=== PATIENT | female | born 1990 | race Caucasian/White ===

== ENCOUNTER → 2017-09-02 14:30 | Outpatient (CLI) | payer OTHER, SELFPAY ==
[2017-09-02 16:38] LABS: Glucose Challenge Gest 1H 50g 93 mg/dL (70-140)
[2017-09-02 16:40] LABS: Absolute Lymphocyte Count 2.27 X10^3/ul (0.83-4.51); Absolute Neutrophil Count 5.3 X10^3/uL (2.0-7.7); Basophil# 0.01 X10^3/uL; Basophil% 0.1 % (0-1); Eosinophil# 0.17 X10^3/uL; Hematocrit 40.5 % (37-47); Hemoglobin 13.7 g/dl (12.0-15.0); Lymphocyte # 2.27 X10^3/ul (4.0); Mean Corp Hgb Conc 33.8 g/gl (32-36); Mean Corpuscular Hgb 31.1 pg (27.0-32.0); Mean Platelet Vol. 10.4 fl (6.2-12.0); Monocyte# 0.62 X10^3/uL; Monocyte% 7.4 % (0-10); Neutrophil # 5.32 X10^3/uL (2.7-7.7); Neutrophil % 63.4 % (47-70); Platelet Count 219 K/mm3 (150-450); RBC Distribution Width SD 40.8 fl (35.1-43.9); White Blood Count 8.4 K/mm3 (4.4-11.0)
[2017-09-02 16:46] LABS: POSITIVE COUNT NO; POSITIVE DIFFERENTIAL NO; POSITIVE MORPHOLOGY NO
[2017-09-02 20:11] LABS: Chlamydia Trachomatis by PCR Negative (Negative); Neisserai gonorrhoeae by PCR Negative (Negative); Probe Check PASS; Sample Adequacy Control PASS; Specimen Processing Control PASS
[2017-09-03 09:36] LABS: HIV - WCH Non-Reactive (Nonreactive); Rubella IgG 42.2 IU/mL
[2017-09-04 20:08] LABS: HCV Quant. RNA PCR HCV Not Detected IU/mL (.)
[2017-09-05 01:09] LABS: Rapid Plasmin Reagin (RPR) NONREACTIVE (NONREACTIVE)
[2017-09-05 11:08] LABS: HEPATITIS B SURFACE AG Negative (Negative)
== END ==
PROVIDERS: Visit Provider Obstetrics & Gynecology
DX: Z34.01 Encounter for supervision of normal first pregnancy, first trimester (principal); Z3A.00 Weeks of gestation of pregnancy not specified
CPT/HCPCS: 82950; 85025; 86592; 86703; 86762; 86850; 86900; 87086; 87340; 87491; 87522; 87591

== ENCOUNTER → 2017-11-14 08:52 | Outpatient (CLI) | payer OTHER, SELFPAY ==
--- NOTE | 2017-11-14 08:54 | US_ITS ---
STUDY: SECOND AND THIRD TRIMESTER OBSTETRICAL ULTRASOUND REASON FOR EXAM: Female, 27 years old. Routine survey. LMP: July 02, 2017. TECHNIQUE: Transabdominal PRIOR ULTRASOUND: None. FINDINGS: There is a single intrauterine fetus. The fetus is in a cephalic presentation. There is demonstrated cardiac activity with a heart rate of 144 bpm. There is a normal amniotic fluid volume. The largest amniotic fluid pocket measures 4.2 cm x 6.8 cm. The placenta is anterior in location and is not low lying. There are Grade 0 placental changes. The cervix measures 4.6 cm in length. The adnexal regions are not visualized. BIOMETRY: BPD: 4.29 cm: 19 weeks, 0 days HC: 16.27 cm: 19 weeks, 1 days AC: 13.84 cm: 19 weeks, 2 days FL: 2.95 cm: 19 weeks, 1 days CI: 76% FL/BPD: 69% FL/HC: FL/AC: 21% HC/AC: 1.18 age by current US: 19 weeks, 1 days. SAULO by current US: April 09, 2018. Estimated weight: 277 grams, +/- 40 grams, 38 %. Age by LMP: 19 weeks, 2 days. SAULO by LMP: April 08, 2018. ANATOMY: Gender: Male Cranium: Normal lateral ventricles. Normal choroid plexus. Normal cerebellum. Normal cisterna magna. Normal face, nose and lips. Chest: Normal 4-chamber heart. Abdomen/Pelvis: Normal diaphragm. Normal stomach. Normal abdominal wall. Normal cord insertion. Normal 3 vessel cord. Normal kidneys. Normal bladder. Spine: Normal cervical spine. Normal thoracic spine. Normal lumbar spine. Normal sacrum. Extremities: Normal bilateral upper extremities. Normal bilateral lower extremities. US/OB Anatomy Scan IMPRESSION: Single live uterine gestation with a mean gestational age of 19 weeks and 1 day. Electronically Signed: Shay Summers MD at 12:59 EDT Tel [phone], Service support ,
== END ==
PROVIDERS: Visit Provider Nurse Practitioner Women's Health
DX: Z34.90 Encounter for supervision of normal pregnancy, unspecified, unspecified trimester (principal)
CPT/HCPCS: 76805

== ENCOUNTER → 2018-01-14 07:57 | Outpatient (CLI) | payer OTHER, SELFPAY ==
[2018-01-14 09:23] LABS: Absolute Lymphocyte Count 2.07 X10^3/ul (0.83-4.51); Absolute Neutrophil Count 6.6 X10^3/uL (2.0-7.7); Basophil# 0.01 X10^3/uL; Basophil% 0.1 % (0-1); Eosinophil# 0.12 X10^3/uL; Eosinophils% 1.3 % (0-5); Hematocrit 33.6 % (37-47); Hemoglobin 11.4 g/dl (12.0-15.0); Lymphocyte # 2.07 X10^3/ul (4.0); Lymphocyte % 22.3 % (19-41); Mean Corp Hgb Conc 33.9 g/gl (32-36); Mean Corpuscular Hgb 31.8 pg (27.0-32.0); Mean Corpuscular Volume 93.6 fL (81-99); Mean Platelet Vol. 9.4 fl (6.2-12.0); Monocyte# 0.43 X10^3/uL; Monocyte% 4.6 % (0-10); Neutrophil # 6.63 X10^3/uL (2.7-7.7); Neutrophil % 71.6 % (47-70); Platelet Count 176 K/mm3 (150-450); RBC Distribution Width CV 12.1 % (11.6-14.6); RBC Distribution Width SD 41.2 fl (35.1-43.9); Red Blood Count 3.59 M/mm3 (4.2-5.4); White Blood Count 9.3 K/mm3 (4.4-11.0)
[2018-01-14 09:25] LABS: POSITIVE COUNT NO; POSITIVE DIFFERENTIAL NO; POSITIVE MORPHOLOGY NO
[2018-01-14 09:49] LABS: Glucose Challenge Gest 1H 50g 116 mg/dL (70-140)
== END ==
PROVIDERS: Visit Provider Nurse Practitioner Women's Health
DX: Z34.90 Encounter for supervision of normal pregnancy, unspecified, unspecified trimester (principal)
CPT/HCPCS: 36415; 82950; 85025

== ENCOUNTER → 2018-03-11 14:47 | Outpatient (CLI) | payer OTHER, SELFPAY ==
[2018-03-11 16:11] LABS: Group B Strep DNA By PCR Negative (Negative); Internal Control PASS; Probe Check PASS; Specimen Processing Control PASS
== END ==
PROVIDERS: Visit Provider Obstetrics & Gynecology
DX: Z34.90 Encounter for supervision of normal pregnancy, unspecified, unspecified trimester (principal)
CPT/HCPCS: 87081; 87653

== ENCOUNTER → 2018-04-08 16:45 | Outpatient (CLI) | payer OTHER, SELFPAY ==
--- NOTE | 2018-04-08 16:47 | US_ITS ---
STUDY: SECOND AND THIRD TRIMESTER OBSTETRICAL ULTRASOUND - LIMITED REASON FOR EXAM: Female, 27 years old. Evaluation of growth LMP: 07/02/2017 PRIOR ULTRASOUND: November 14, 2017 TECHNIQUE: TECHNICAL QUALITY: Adequate. FINDINGS: There is a single intrauterine fetus. The fetus is in a cephalic presentation. There is demonstrated cardiac activity with a heart rate of 1.3 bpm. There is a normal amniotic fluid volume. The largest amniotic fluid pocket measures 5.6 x 2.5 cm. The amniotic fluid index (LIBBY) is 15.4 cm. The placenta is anterior and not low-lying There are Grade 1 placental changes.. BIOMETRY: BPD: 9.5 cm: 30 weeks, 5 days HC: 34.6 cm: 40 weeks, 1 days AC: 34.9 cm: 38 weeks, 6 days FL: 7.6 cm: 38 weeks, 5 days Age by LMP: 40 weeks, 0 days. SAULO by LMP: 04/08/2018. age by prior US: 39 weeks, 6 days. SAULO by prior US: 04/09/2018. age by current US: 39 weeks, 6 days. SAULO by current US: 04/14/2018. Estimated weight: 3632 grams, +/- 530 grams, 51 percentile. Gender: US/OB Limited With Biometrics IMPRESSION: A single live fetus in cephalic presentation and longitudinal lie with composite measurements average amount tibia could relate to 39 weeks 6 days +/- 5 days with an expected date of delivery of 04/09/2018 There is an estimated weight of 363 2 g. This is the 51st percentile. The placenta is anterior and not low-lying. It is grade 1. Electronically Signed: Tristen Benson MD at 7:39 EDT Tel , Service support ,
== END ==
PROVIDERS: Referring Provider Obstetrics & Gynecology; Visit Provider Obstetrics & Gynecology
DX: O26.843 Uterine size-date discrepancy, third trimester (principal); Z3A.00 Weeks of gestation of pregnancy not specified
CPT/HCPCS: 76816

== ENCOUNTER 2018-04-14 19:05 | Inpatient (IN) | payer OTHER, SELFPAY ==
[2018-04-14 19:29] VITALS: BMI 39.9
[2018-04-14] MEDS: 0.9% Saline Lock 10 ML Syringe IV (19:35)
[2018-04-14] MEDS: miSOPROStol 25 MCG TABLET VAGINAL (20:08)
[2018-04-14 20:25] LABS: Absolute Lymphocyte Count 2.54 X10^3/ul (0.83-4.51); Absolute Neutrophil Count 6.8 X10^3/uL (2.0-7.7); Basophil# 0.01 X10^3/uL; Basophil% 0.1 % (0-1); Hematocrit 36.2 % (37-47); Hemoglobin 12.3 g/dl (12.0-15.0); Lymphocyte # 2.54 X10^3/ul (4.0); Lymphocyte % 25.1 % (19-41); Mean Corpuscular Hgb 31.7 pg (27.0-32.0); Mean Corpuscular Volume 93.3 fL (81-99); Mean Platelet Vol. 10.3 fl (6.2-12.0); Monocyte# 0.63 X10^3/uL; Monocyte% 6.2 % (0-10); Neutrophil # 6.83 X10^3/uL (2.7-7.7); Neutrophil % 67.4 % (47-70); Platelet Count 218 K/mm3 (150-450); RBC Distribution Width CV 12.5 % (11.6-14.6); RBC Distribution Width SD 42.1 fl (35.1-43.9); Red Blood Count 3.88 M/mm3 (4.2-5.4); White Blood Count 10.1 K/mm3 (4.4-11.0)
[2018-04-14 20:26] LABS: POSITIVE COUNT NO; POSITIVE DIFFERENTIAL NO; POSITIVE MORPHOLOGY NO
--- NOTE | 2018-04-14 20:45 | PCM.HP.OB ---
- Problem List (1) Post-dates Status: Acute (2) Contraception Status: Acute Qualifiers: Comment: No PA required. IUD 6 wk pp (3) Supervision of normal Status: Acute Qualifiers: Comment: PRR Boy(name phuong) SAULO 04/08/18 Fer[facility] History Date of Admission: 04/14/18 Final SAULO: 04/08/18 Gestational age: 40 Weeks and 6 Days History of this : This is a 27 year-old, , at 40 weeks 6 days gestational age presents for IOL secondary to postdates. she has had an uncomplicated and has done well. she denies any bleeding or loss of fluid, admits good fm and denies any reguar ctx. Medical History: Medical History (Last Reviewed 04/13/18 @ 08:29 by Reema Dupont) History of wisdom tooth extraction, class II edentulism Z98.890, K08.492 Surgical History: Surgical History (Last Reviewed 04/13/18 @ 08:29 by Reema Dupont) History of tonsillectomy Z98.890, Z90.89 Allergies No Known Allergies Allergy (Verified 04/13/18 08:29) Home Medications: Home Medications vitamin,calcium,npfkerzc-xrrw-jzaur acid tablet 1 tab PO QDAY 09/02/17 Smoking Status: Never smoker Alcohol: None Number of Fetus(es): 1 Heart Tracins moderate variability reactive no decels cat I tracing TOCO Analysis: no regular History Past Pregnancies: Past Pregnancies Delivery Date Name GA/Weeks Outcome Route Weight Infant Gender Labor Length Anesthesia Delivery Location Provider FOB Labs: Mom's Labs & Results 04/14/18 04/14/18 19:35 19:35 WBC 10.1 RBC 3.88 L Hgb 12.3 Hct 36.2 L MCV 93.3 MCH 31.7 MCHC 34.0 RDW 12.5 RDW Differential 42.1 Plt Count 218 MPV 10.3 Immature Gran % (Auto) 0.200 Neut % (Auto) 67.4 Lymph % (Auto) 25.1 [place] % (Auto) 6.2 Eos % (Auto) 1.0 Baso % (Auto) 0.1 Absolute Neuts (auto) 6.8 Absolute Lymphs (auto) 2.54 Total Counted Not Reportable Blood Type Pending Antibody Screen Pending Course Did the patient receive Yes care? Labs Blood Type: A RH: POSITIVE RPR/VDRL/Syphilis Nonreactive Rubella status Immune HbSAg Negative Date Done: 09/02/17 Chlamydia Negative Gonorrhea Negative HIV/AIDS Non-Reactive Group B Strep: Negative Current Obstetrical History Gestational Diabetes No Incompetent Cervix No Infertility No IUGR No Macrosomia No Hypertension/Pre-eclampsia No Placenta Previa/Abruption No PTL/PROM No Uterine anomaly No Oligohydramnios No Polyhydramnios No Multiple gestation No Past Medical History Asthma No Diabetes No Hypertension No Heart disease No Mitral valve prolapse No Neurologic/Seizure disorder/ No Migraines Kidney disease No Liver disease No Varicosities No Clotting disorders/Hx of DVT No Thyroid Dysfunction No Other medical diseases No Psychiatric disorders No Major trauma No Abnormal PAP smear No Sleep apnea No Mammogram in the last 2 years No Social History Marital Status: Alleged father Fercho Hx Smoking No Smoking Status Never smoker Expected Infant Delivery Method: Spontaneous Vaginal Describe any other labor & delivery plans:: Specific Issue/Plans. flu vaccine: given. minichart given: yes. tdap vaccine: given. rhogam: NA. LARC form signed: declines. labor support person: Fercho. pain management: epidural. cut cord/dad catch: yes. : yes. PP control planned: mirena IUD. special requests: [] Review of Systems Constitutional: Denies: Fever, Malaise Eyes: Denies: Blurred vision, Vision Change HEENT: Denies: Head Aches, Visual Changes Cardiovascular: Denies: Chest Pain, Palpitations Respiratory: Denies: Cough, Shortness of Breath, Wheezing Gastrointestinal: Denies: Abdominal Pain, Diarrhea, Nausea, Vomiting Genitourinary: Denies: Dysuria, Hematuria Musculoskeletal: Denies: Joint Pain, Muscle pain Skin: Denies: Lesions, Rash Neurological: Denies: Blurred vision, Focal weakness, Headaches Psychiatric: Denies: Anxiety, Depression Endocrine: Denies: Heat/ Cold Intolerance Hematologic/ Lymphatic: Denies: Easy Bruising, Easy Bleeding Physical Exam General: Alert, Cooperative, No apparent distress HEENT: Atraumatic, Normocephalic. Negative for: Thyromegaly, Lymphadenopathy Cardiovascular: Regular rate Lungs: Normal air movement Abdomen: Soft, Non Tender, Gravid Neurological: Deep Tendon Reflexes 2+/4 and Symmetrical, Neuro grossly intact. Negative for: Clonus NETWORK TECHNICAL ANALYST: Normal external genitalia. Negative for: Vulvar lesions Estimated gestational size: Appropriate for gestational size Presentation: Cephalic Assessment/Plan All Active Problems (Last Reviewed 04/13/18 @ 08:29 by Reema Dupont) Post-dates (Acute) Contraception (Acute) Supervision of normal (Acute) This is a 27 year-old, at 40 weeks 6days gestational age presents IOL postdates Patient presents IOL, plan cytotec then fb/pit, exp management for , AROM when able. Pain management: plans epidural. GBS negative. Management of any complications: none I have reviewed the [facility] and made any clinically relevant updates.
--- NOTE | 2018-04-14 20:49 | HP.PCM_ITS ---
- Problem List (1) Post-dates Status: Acute (2) Contraception Status: Acute Qualifiers: Comment: No PA required. IUD 6 wk pp (3) Supervision of normal Status: Acute Qualifiers: Comment: PRR Boy(name phuong) SAULO 04/08/18 Fer[facility] History Date of Admission: 04/14/18 Final SAULO: 04/08/18 Gestational age: 40 Weeks and 6 Days History of this : This is a 27 year-old, , at 40 weeks 6 days gestational age presents for IOL secondary to postdates. she has had an uncomplicated and has done well. she denies any bleeding or loss of fluid, admits good fm and denies any reguar ctx. Medical History: Medical History (Last Reviewed 04/13/18 @ 08:29 by Reema Dupont) History of wisdom tooth extraction, class II edentulism Z98.890, K08.492 Surgical History: Surgical History (Last Reviewed 04/13/18 @ 08:29 by Reema Dupont) History of tonsillectomy Z98.890, Z90.89 Allergies No Known Allergies Allergy (Verified 04/13/18 08:29) Home Medications: Home Medications vitamin,calcium,kqkabyaf-srug-cmjlc acid tablet 1 tab PO QDAY 09/02/17 Smoking Status: Never smoker Alcohol: None Number of Fetus(es): 1 Heart Tracins moderate variability reactive no decels cat I tracing TOCO Analysis: no regular History Past Pregnancies: Past Pregnancies Delivery Date Name GA/Weeks Outcome Route Weight Infant Gender Labor Length Anesthesia Delivery Location Provider FOB Labs: Mom's Labs & Results 04/14/18 04/14/18 19:35 19:35 WBC 10.1 RBC 3.88 L Hgb 12.3 Hct 36.2 L MCV 93.3 MCH 31.7 MCHC 34.0 RDW 12.5 RDW Differential 42.1 Plt Count 218 MPV 10.3 Immature Gran % (Auto) 0.200 Neut % (Auto) 67.4 Lymph % (Auto) 25.1 [place] % (Auto) 6.2 Eos % (Auto) 1.0 Baso % (Auto) 0.1 Absolute Neuts (auto) 6.8 Absolute Lymphs (auto) 2.54 Total Counted Not Reportable Blood Type Pending Antibody Screen Pending Course Did the patient receive Yes care? Labs Blood Type: A RH: POSITIVE RPR/VDRL/Syphilis Nonreactive Rubella status Immune HbSAg Negative Date Done: 09/02/17 Chlamydia Negative Gonorrhea Negative HIV/AIDS Non-Reactive Group B Strep: Negative Current Obstetrical History Gestational Diabetes No Incompetent Cervix No Infertility No IUGR No Macrosomia No Hypertension/Pre-eclampsia No Placenta Previa/Abruption No PTL/PROM No Uterine anomaly No Oligohydramnios No Polyhydramnios No Multiple gestation No Past Medical History Asthma No Diabetes No Hypertension No Heart disease No Mitral valve prolapse No Neurologic/Seizure disorder/ No Migraines Kidney disease No Liver disease No Varicosities No Clotting disorders/Hx of DVT No Thyroid Dysfunction No Other medical diseases No Psychiatric disorders No Major trauma No Abnormal PAP smear No Sleep apnea No Mammogram in the last 2 years No Social History Marital Status: Alleged father Fercho Hx Smoking No Smoking Status Never smoker Expected Infant Delivery Method: Spontaneous Vaginal Describe any other labor & delivery plans:: Specific Issue/Plans. flu vaccine: given. minichart given: yes. tdap vaccine: given. rhogam: NA. LARC form signed: declines. labor support person: Fercho. pain management: epidural. cut cord/dad catch: yes. : yes. PP control planned: mirena IUD. special requests: [] Review of Systems Constitutional: Denies: Fever, Malaise Eyes: Denies: Blurred vision, Vision Change HEENT: Denies: Head Aches, Visual Changes Cardiovascular: Denies: Chest Pain, Palpitations Respiratory: Denies: Cough, Shortness of Breath, Wheezing Gastrointestinal: Denies: Abdominal Pain, Diarrhea, Nausea, Vomiting Genitourinary: Denies: Dysuria, Hematuria Musculoskeletal: Denies: Joint Pain, Muscle pain Skin: Denies: Lesions, Rash Neurological: Denies: Blurred vision, Focal weakness, Headaches Psychiatric: Denies: Anxiety, Depression Endocrine: Denies: Heat/ Cold Intolerance Hematologic/ Lymphatic: Denies: Easy Bruising, Easy Bleeding Physical Exam General: Alert, Cooperative, No apparent distress HEENT: Atraumatic, Normocephalic. Negative for: Thyromegaly, Lymphadenopathy Cardiovascular: Regular rate Lungs: Normal air movement Abdomen: Soft, Non Tender, Gravid Neurological: Deep Tendon Reflexes 2+/4 and Symmetrical, Neuro grossly intact. Negative for: Clonus EARTH MOVING TECHNICIAN: Normal external genitalia. Negative for: Vulvar lesions Estimated gestational size: Appropriate for gestational size Presentation: Cephalic Assessment/Plan All Active Problems (Last Reviewed 04/13/18 @ 08:29 by Reema Dupont) Post-dates (Acute) Contraception (Acute) Supervision of normal (Acute) This is a 27 year-old, at 40 weeks 6days gestational age presents IOL postdates Patient presents IOL, plan cytotec then fb/pit, exp management for , AROM when able. Pain management: plans epidural. GBS negative. Management of any complications: none I [facility] and made any clinically relevant updates.
[2018-04-15] MEDS: miSOPROStol 25 MCG TABLET VAGINAL (00:27)
[2018-04-15] MEDS: 0.9% Normal Saline 100 ML IV.SOLN. INTRA-UTER (04:54)
--- NOTE | 2018-04-15 05:13 | PCM.PN.BLA ---
Progress Note fht 120-130 moderate variability reactive no decels cat I tracing toco irregular, 1-2 50 -2 fb and pit started now. exp management
[2018-04-15] MEDS: Oxytocin 30 units/NS 500 ml 30 UNITS/500 ML IV.SOLN IV (05:49)
[2018-04-15] MEDS: Lactated Ringers 1,000 ML 50 ML IV ×3 (05:49→18:20)
[2018-04-15] MEDS: fentaNYL-bupivacaine (epidural) 100 ML BAG EPIDURAL ×2 (15:47→20:31)
[2018-04-15] MEDS: Ondansetron 4 MG/2 ML Vial IV (18:56)
[2018-04-15] MEDS: Oxytocin 30 units/NS 500 ml 30 UNITS/500 ML IV.SOLN 334 UNITS IV (20:58)
[2018-04-15] MEDS: Oxytocin 30 units/NS 500 ml 30 UNITS/500 ML IV.SOLN 167 UNITS IV (21:29)
--- NOTE | 2018-04-15 21:43 | PCM.OB.VAG ---
- Problem List (1) Post-dates Status: Acute (2) Contraception Status: Acute Qualifiers: Comment: No PA required. IUD 6 wk pp (3) Supervision of normal Status: Acute Qualifiers: Comment: PRR Boy(name phuong) SAULO 04/08/18 [facility] Vaginal Delivery Maternal Presentation: Medically Indicated Induction 27-year-old at 41 weeks presents for induction of labor secondary to postdates Method of Induction: Pitocin, Coello Bulb, Cytotec Medical Reason for Induction: Post term Amniotic Membrane Rupture Type: Artificial Amniotic Fluid Description: Clear Final SAULO: 04/08/18 Gestational age: 41 Weeks and 0 Days Date of Procedure: 04/15/18 Pre-Operative Diagnosis: Induction of labor postdates Post-Operative Diagnosis: Same Surgery/ Procedure Performed: Spontaneous Vaginal Delivery Type of Anesthesia: Epidural Description of Procedure: Patient began pushing and delivered the head in the KAI presentation. The head was delivered atraumatically and a loose nuchal cord x1 was identified and the infant was delivered through it. The anterior and posterior shoulders delivered without complication followed by the rest of the and the infant was placed on the maternal abdomen. Delayed cord clamping was employed for approximately 60 seconds. Cord was clamped and cut and gentle traction was applied to the cord and the placenta delivered spontaneously immediately following it was noted to be intact with three-vessel cord. The perineum and vagina were inspected and noted to have a small second-degree perineal laceration that was repaired in the usual fashion with 3-0 Vicryl repeat. EBL was 200 cc. Patient and infant tolerated delivery well. Presentation: AKI Placental Delivery Description: Spontaneous Placenta Disposition: [facility] Cord Vessel Description: 3 Vessels Cord Entanglement: Around neck x 1, loose Estimated Blood Loss: 200 A gender: Male Episiotomy Description: None Laceration: Perineal Extension/lac, 2nd degree Medications given after delivery: IV Pitocin Complications: None
--- NOTE | 2018-04-15 21:53 | PCM.DCVAG ---
Discharge Diet: No Restrictions Discharge Activity: Return to Normal Activity, May not drive while taking narcotic pain medications., May Shower May resume sexual activity in: 4-6 weeks Call your doctor if your incision/area has: Continuous Slow Oozing, Sudden Increased Bleeding, Increased Pain/ Swelling, Increased Redness, Foul Smelling Discharge Additional Instructions: If you experience any of the following, contact your healthcare provider. Bleeding that soaks a pad every hour for 2 hours Fever 100.4 or higher Unrelieved incision or abdominal pain Swelling, redness, discharge or bleeding from your incision or episiotomy site Your incision begins to separate Problems urinating (including inability to urinate or burning while urinating). Visual changes Severe headache Flu-like symptoms Pain or redness in one of both of your breasts Pain, warmth, tenderness or swelling in your legs, especially the calf area Frequent nausea and vomiting Symptoms of depression or anxiety If you experience any of the following, call 911 or go to the nearest Emergency Room. Chest pain Problems breathing Seizure activity Partial or complete paralysis of a body part, slurred speech, weakness or drooping of the face, or a sudden inability to walk or hold your balance Allergies/Adverse Reactions: Allergies No Known Allergies Allergy (Verified 04/13/18 08:29) Medications to take at Discharge vitamin,calcium,sdqysvdh-jlzb-ijnuf acid tablet 1 tab PO QDAY 09/02/17 Naproxen [Naprosyn] 250 - 500 mg PO Q8H PRN PRN #30 tablet 04/15/18 Please Follow Up With: Ana Rosa Polanco MD - [phone] When: Call to make an appointment with your doctor in 6 weeks. If you had elevated Blood pressure or 4th degree laceration you will need to be seen in 2 weeks. Primary Care Physician: Care Physician,No Primary [Primary Care Provider] - Test Results: Test results from this visit will be discussed in further detail at your follow-up appointment, if applicable.
--- NOTE | 2018-04-15 21:54 | DCINST_ITS ---
Discharge Diet: No Restrictions Discharge Activity: Return to Normal Activity, May not drive while taking narcotic pain medications., May Shower May resume sexual activity in: 4-6 weeks Call your doctor if your incision/area has: Continuous Slow Oozing, Sudden Increased Bleeding, Increased Pain/ Swelling, Increased Redness, Foul Smelling Discharge Additional Instructions: If you experience any of the following, contact your healthcare provider. * Bleeding that soaks a pad every hour for 2 hours * Fever 100.4 or higher * Unrelieved incision or abdominal pain * Swelling, redness, discharge or bleeding from your incision or episiotomy site * Your incision begins to separate * Problems urinating (including inability to urinate or burning while urinating). * Visual changes * Severe headache * Flu-like symptoms * Pain or redness in one of both of your breasts * Pain, warmth, tenderness or swelling in your legs, especially the calf area * Frequent nausea and vomiting * Symptoms of depression or anxiety If you experience any of the following, call 911 or go to the nearest Emergency Room. * Chest pain * Problems breathing * Seizure activity * Partial or complete paralysis of a body part, slurred speech, weakness or drooping of the face, or a sudden inability to walk or hold your balance Allergies/Adverse Reactions: Allergies No Known Allergies Allergy (Verified 04/13/18 08:29) Medications to take at Discharge vitamin,calcium,dfvyallc-jgyq-txwzv acid tablet 1 tab PO QDAY 09/02/17 Naproxen [Naprosyn] 250 - 500 mg PO Q8H PRN PRN #30 tablet 04/15/18 Please Follow Up With: Ana Rosa Polanco MD - [phone] When: Call to make an appointment with your doctor in 6 weeks. If you had elevated Blood pressure or 4th degree laceration you will need to be seen in 2 weeks. Primary Care Physician: Care Physician,No Primary [Primary Care Provider] - Test Results: Test results from this visit will be discussed in further detail at your follow- up appointment, if applicable.
[2018-04-15] MEDS: 0.9% Saline Lock 10 ML Syringe IV (22:29)
[2018-04-16] MEDS: Naproxen 250 MG Tablet PO ×3 (00:03→18:54)
[2018-04-16 00:44] VITALS: BP 144/77; PULSE 113; RESP 18; TEMP 36.4
[2018-04-16 04:20] VITALS: BP 113/67; PULSE 77; RESP 18; TEMP 35.9
--- NOTE | 2018-04-16 08:39 | PCM.PN.OB ---
Patient Problems: Active and Suspected Problems (Last Reviewed 04/13/18 @ 08:29 by Reema Dupont) Post-dates (Acute) Subjective: Doing well. No CP, SOB. Pain controlled. - Physical Exam General: Alert, Oriented x3 Abdomen: Soft, Non Tender, - - FF below U Vital Signs Temp Pulse Resp BP 96.6 F L 77 18 113/67 04/16/18 04:20 04/16/18 04:20 04/16/18 04:20 04/16/18 04:20 Oxygen Delivery Method Room Air Weight: 263 lb Body Mass Index (BMI) 39.9 Intake and Output for Last 24 Hours 04/14/18 04/15/18 04/16/18 23:59 23:59 23:59 Intake Total 1805 / 1805 Output Total 1400 / 1400 300 / 300 Balance 405 / 405 -300 / -300 Medical Necessity - Tobacco Use Smoking Status: Never smoker Assessment/Plan All Active Problems (Last Reviewed 04/13/18 @ 08:29 by Reema Dupont) Post-dates (Acute) Contraception (Acute) Supervision of normal (Acute) PPD#1: Routine care. Pain controlled.
[2018-04-16 08:55] VITALS: BP 118/70; PULSE 77; RESP 18; TEMP 36.5; O2SAT 98
[2018-04-16 12:28] VITALS: BP 140/84; PULSE 80; RESP 18; TEMP 36.3; O2SAT 98
[2018-04-16 17:40] VITALS: BP 122/85; PULSE 81; RESP 16; TEMP 36.3
[2018-04-16 22:00] VITALS: BP 128/84; PULSE 80; RESP 16; TEMP 36.8; O2SAT 98
[2018-04-17 01:42] VITALS: BP 120/76; PULSE 81; RESP 16; TEMP 36.5
[2018-04-17] MEDS: Senna/Docusate Sodium 1 Tablet PO (07:49)
[2018-04-17 08:28] VITALS: BP 123/82; PULSE 75; RESP 16; TEMP 36.4
== END 2018-04-17 11:45 | disposition home or self-care (01) | DRG 807 ==
PROVIDERS: Admitting Provider Obstetrics & Gynecology; Visit Provider Obstetrics & Gynecology
DX: O48.0 Post-term pregnancy (principal); O69.81X0 Labor and delivery complicated by cord around neck, without compression, not applicable or unspecified; O70.1 Second degree perineal laceration during delivery; Z3A.41 41 weeks gestation of pregnancy; Z37.0 Single live birth
CPT/HCPCS: 59025; 59050; 85025; 86850; 86900; 99218; J7120; A4216; G0378; J2405

== ENCOUNTER 2018-04-27 20:49 | Outpatient (CLI) | payer OTHER, SELFPAY | END 2018-04-27 22:00 | disposition home or self-care (01) | LOC: WPOUT 20:56 → WP 20:57 | PROVIDERS: Visit Provider Obstetrics & Gynecology | DX: Z39.1 Encounter for care and examination of lactating mother (principal) | CPT/HCPCS: 96152 ==

== ENCOUNTER 2019-04-11 10:22 | Emergency (ER) | payer OTHER, SELFPAY ==
[2019-03-23 10:10] VITALS: BMI 37.0
[2019-04-11 10:25] VITALS: BP 137/75; PULSE 94; RESP 16; TEMP 36.3; O2SAT 100; BMI 34.9
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
[2019-04-11] MEDS: Ibuprofen 600 MG Tablet PO (10:43)
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
== END 2019-04-11 11:40 | disposition home or self-care (01) ==
LOC: ED 11:07
PROVIDERS: Emergency Provider Emergency Medicine; Family Provider Internal Medicine; PCP Internal Medicine
DX: S20.211A Contusion of right front wall of thorax, initial encounter (principal); M54.2 Cervicalgia; V47.5XXA Car driver injured in collision with fixed or stationary object in traffic accident, initial encounter; Y93.9 Activity, unspecified; Y92.9 Unspecified place or not applicable; Y99.9 Unspecified external cause status
CPT/HCPCS: 71046; 99283

== ENCOUNTER → 2019-06-11 17:00 | Outpatient (CLI) | payer OTHER, SELFPAY ==
[2019-06-11 08:51] VITALS: BMI 34.9
[2019-07-27 11:12] LABS: HPV Reflexed? NOT INDICATED
== END ==
PROVIDERS: Family Provider Internal Medicine; PCP Internal Medicine; Referring Provider Obstetrics & Gynecology; Visit Provider Obstetrics & Gynecology
DX: Z12.4 Encounter for screening for malignant neoplasm of cervix (principal)
CPT/HCPCS: 88175; G0145

== ENCOUNTER → 2019-10-04 16:14 | Outpatient (CLI) | payer OTHER, SELFPAY ==
[2019-10-04 09:21] VITALS: BMI 34.9
[2019-10-04 17:38] LABS: Amphetamine Urine VISTA NEGATIVE (<1000 ng/mL); Barbiturate Urine VISTA NEGATIVE (< 200 ng/mL); Benzodiazepine Urine VISTA NEGATIVE (< 200 ng/mL); Cocaine Urine VISTA NEGATIVE (< 300 ng/mL); Ecstacy Urine VISTA NEGATIVE (< 500 ng/mL); Methadone Urine VISTA NEGATIVE (< 300 ng/mL); PCP Urine VISTA NEGATIVE (< 25 ng/mL); THC Urine VISTA NEGATIVE (< 50 ng/mL); Vista UDS pH Range 6
[2019-10-04 20:20] LABS: Chlamydia Trachomatis by PCR Negative (Negative); Neisserai gonorrhoeae by PCR Negative (Negative); Probe Check PASS; Sample Adequacy Control PASS; Specimen Processing Control PASS
== END ==
PROVIDERS: Obstetrics & Gynecology; PCP Internal Medicine; Referring Provider Internal Medicine; Visit Provider Internal Medicine
DX: Z34.90 Encounter for supervision of normal pregnancy, unspecified, unspecified trimester (principal); Z3A.00 Weeks of gestation of pregnancy not specified
CPT/HCPCS: 80307; 87086; 87088; 87491; 87591

== ENCOUNTER → 2019-11-15 08:02 | Outpatient (CLI) | payer OTHER, SELFPAY ==
[2019-10-04 09:21] VITALS: BMI 34.9
[2019-11-15 08:43] LABS: Absolute Lymphocyte Count 1.97 X10^3/uL (0.83-4.51); Absolute Neutrophil Count 3.8 X10^3/uL (2.0-7.7); Basophil# 0.02 X10^3/uL; Basophil% 0.3 % (0-1); Eosinophil# 0.22 X10^3/uL; Eosinophils% 3.5 % (0-5); Hematocrit 36.5 % (37-47); Lymphocyte # 1.97 X10^3/ul (4.0); Lymphocyte % 31.2 % (19-41); Mean Corp Hgb Conc 35.6 g/dL (32-36); Mean Corpuscular Hgb 32.2 pg (27.0-32.0); Mean Corpuscular Volume 90.3 fL (81-99); Mean Platelet Vol. 10.1 fl (6.2-12.0); Monocyte# 0.33 X10^3/uL; Monocyte% 5.2 % (0-10); NRBC Flagged by Analyzer 0 % (0-5); Neutrophil # 3.77 X10^3/uL (2.7-7.7); Neutrophil % 59.6 % (47-70); Platelet Count 176 K/mm3 (150-450); Red Blood Count 4.04 M/mm3 (4.2-5.4); White Blood Count 6.3 K/mm3 (4.4-11.0)
[2019-11-15 08:59] LABS: Glucose Challenge Gest 1H 50g 100 mg/dL (70-140)
[2019-11-15 09:46] LABS: HIV - WCH Non-Reactive (Nonreactive); Hepatitis B Surface Antigen Non-Reactive (Nonreactive); Hepatitis C Antibody Non-Reactive (Nonreactive); Rubella IgG 37.6 IU/mL
[2019-11-18 02:20] LABS: Rapid Plasmin Reagin (RPR) NONREACTIVE (NONREACTIVE)
== END ==
PROVIDERS: PCP Internal Medicine; Referring Provider Obstetrics & Gynecology; Visit Provider Obstetrics & Gynecology
DX: O99.210 Obesity complicating pregnancy, unspecified trimester (principal); Z3A.00 Weeks of gestation of pregnancy not specified
CPT/HCPCS: 36415; 82950; 85025; 86592; 86703; 86762; 86803; 86850; 86900; 86901; 87340

== ENCOUNTER → 2020-01-03 08:01 | Outpatient (CLI) | payer OTHER, SELFPAY ==
[2019-11-17 11:40] VITALS: BMI 34.9
[2019-12-17 13:55] VITALS: BMI 37.7
--- NOTE | 2020-01-03 08:02 | US_ITS ---
STUDY: SECOND AND THIRD TRIMESTER OBSTETRICAL ULTRASOUND REASON FOR EXAM: Female, 29 years old anatomy LMP: August 21, 2019. TECHNIQUE: Transabdominal TECHNICAL QUALITY: Adequate. PRIOR ULTRASOUND: None. FINDINGS: There is a single intrauterine fetus. The fetus is in a cephalic presentation. There is demonstrated cardiac activity with a heart rate of 143 bpm. There is a normal amniotic fluid volume. The largest amniotic fluid pocket measures 4.2 cm x 3.1 cm. The amniotic fluid index (LIBBY) is within normal limits. The placenta is posterior in location and is not low lying. There are Grade 0 placental changes. The cervix measures 4.8 cm in length. The bilateral adnexal regions are normal. BIOMETRY: BPD: 4.62 cm: 19 weeks, 6 days HC: 17.26 cm: 19 weeks, 5 days AC: 14.22 cm: 19 weeks, 4 days FL: 3.14 cm: 19 weeks, 5 days CI: 79% FL/BPD: 68% FL/HC: FL/AC: 22% HC/AC: 1.21 age by current US: 19 weeks, 3 days. SAULO by current US: May 26, 2020. Estimated weight: 306 grams, +/- 45 grams, 75 %. Age by LMP: 19 weeks, 1 days. SAULO by LMP: May 28, 2020. ANATOMY: Gender: Male Cranium: Normal lateral ventricles. Normal choroid plexus. Normal cerebellum. Normal cisterna magna. Normal face, nose and lips. Chest: Normal 4-chamber heart. Abdomen/Pelvis: Normal diaphragm. Normal stomach. Normal abdominal wall. Normal cord insertion. Normal 3 vessel cord. Normal kidneys. Normal bladder. Spine: Normal cervical spine. Normal thoracic spine. Normal lumbar spine. Normal sacrum. Extremities: Normal bilateral upper extremities. Normal bilateral lower extremities. US/OB Anatomy Scan IMPRESSION: Single live intrauterine gestation with mean gestational age of 19 weeks and 3 days. Electronically Signed: Shay Summers, at 10:34 EDT , Service support ,
== END ==
PROVIDERS: PCP Internal Medicine; Referring Provider Obstetrics & Gynecology; Visit Provider Obstetrics & Gynecology
DX: Z34.90 Encounter for supervision of normal pregnancy, unspecified, unspecified trimester (principal); Z3A.19 19 weeks gestation of pregnancy
CPT/HCPCS: 76805

== ENCOUNTER → 2020-03-08 06:37 | Outpatient (CLI) | payer OTHER, SELFPAY ==
[2020-02-10 13:25] VITALS: BMI 34.9
[2020-03-08 07:14] LABS: Absolute Lymphocyte Count 2.27 X10^3/uL (0.83-4.51); Absolute Neutrophil Count 5.1 X10^3/uL (2.0-7.7); Basophil# 0.01 X10^3/uL; Basophil% 0.1 % (0-1); Eosinophil# 0.35 X10^3/uL; Eosinophils% 4.2 % (0-5); Hematocrit 34.2 % (37-47); Hemoglobin 11.7 g/dL (12.0-15.0); Lymphocyte # 2.27 X10^3/ul (4.0); Lymphocyte % 27.1 % (19-41); Mean Corp Hgb Conc 34.2 g/dL (32-36); Mean Corpuscular Hgb 33.1 pg (27.0-32.0); Mean Corpuscular Volume 96.9 fL (81-99); Monocyte# 0.57 X10^3/uL; Monocyte% 6.8 % (0-10); NRBC Flagged by Analyzer 0 % (0-5); Neutrophil # 5.13 X10^3/uL (2.7-7.7); Neutrophil % 61.2 % (47-70); Platelet Count 216 K/mm3 (150-450); RBC Distribution Width CV 11.8 % (11.6-14.6); RBC Distribution Width SD 41.2 fl (35.1-43.9); Red Blood Count 3.53 M/mm3 (4.2-5.4); White Blood Count 8.4 K/mm3 (4.4-11.0)
[2020-03-08 07:38] LABS: Glucose Challenge Gest 1H 50g 115 mg/dL (70-140)
== END ==
PROVIDERS: PCP Internal Medicine; Referring Provider Obstetrics & Gynecology; Visit Provider Obstetrics & Gynecology
DX: Z34.82 Encounter for supervision of other normal pregnancy, second trimester (principal); Z13.1 Encounter for screening for diabetes mellitus
CPT/HCPCS: 36415; 82950; 85025

== ENCOUNTER → 2020-05-04 | Outpatient (CLI) | payer OTHER, SELFPAY ==
[2020-05-04 14:04] VITALS: BMI 41.5
== END | disposition home or self-care (01) ==
LOC: LABSPEC 16:26
PROVIDERS: PCP Internal Medicine; Referring Provider Obstetrics & Gynecology; Visit Provider Obstetrics & Gynecology
DX: Z34.90 Encounter for supervision of normal pregnancy, unspecified, unspecified trimester (principal)
CPT/HCPCS: 87081

== ENCOUNTER → 2020-05-16 11:18 | Outpatient (CLI) | payer OTHER, SELFPAY ==
[2020-05-12 14:43] VITALS: BMI 41.9
--- NOTE | 2020-05-16 11:20 | US_ITS ---
STUDY: SECOND AND THIRD TRIMESTER OBSTETRICAL ULTRASOUND - LIMITED REASON FOR EXAM: Female, 29 years old GROWTH LMP: 08/22/2019 PRIOR ULTRASOUND: Comparison is made with prior study dated 01/03/2020. TECHNIQUE: Transabdominal TECHNICAL QUALITY: Adequate. FINDINGS: There is a single intrauterine fetus. The fetus is in a cephalic presentation. There is demonstrated cardiac activity with a heart rate of 144 bpm. There is a normal amniotic fluid volume. The largest amniotic fluid pocket measures 2.74 cm. The amniotic fluid index (LIBBY) is 7.27 cm. The placenta is fundal in location. There are Grade 1 placental changes. BIOMETRY: BPD: 9.15 cm: 37 weeks, 0 days HC: 32.36 cm: 36 weeks, 4 days AC: 33.75 cm: 37 weeks, 4 days FL: 7.11 cm: 36 weeks, 3 days Age by LMP: 38 weeks, 2 days. SAULO by LMP: 05/28/2020. age by prior US: 38 weeks, 4 days. SAULO by prior US: 05/26/2020. age by current US: 36 weeks, 6 days. SAULO by current US: 06/07/2020. Estimated weight: 3196 grams, +/- 479 grams, 41 percentile. US/OB Limited With Biometrics IMPRESSION: Single live uterine gestation with a mean gestational age 30 weeks and 4 days. Measurements obtained today fall within the normal expected range. Electronically Signed: Shay Summers, at 15:44 EST , Service support ,
== END ==
PROVIDERS: PCP Internal Medicine; Referring Provider Obstetrics & Gynecology; Visit Provider Obstetrics & Gynecology
DX: Z87.59 Personal history of other complications of pregnancy, childbirth and the puerperium (principal)
CPT/HCPCS: 76816

== ENCOUNTER → 2020-05-30 12:34 | Outpatient (CLI) | payer OTHER, SELFPAY ==
--- NOTE | 2020-05-30 12:36 | US_ITS ---
STUDY: SECOND AND THIRD TRIMESTER OBSTETRICAL ULTRASOUND - LIMITED REASON FOR EXAM: Female, 29 years old LIBBY CHECK-BORDERLINE LOW LMP: 08/22/2019. PRIOR ULTRASOUND: 05/16/2020. TECHNIQUE: Transabdominal TECHNICAL QUALITY: Adequate. FINDINGS: There is a single intrauterine fetus. The fetus is in a cephalic presentation. There is demonstrated cardiac activity with a heart rate of 131 bpm. There is a normal amniotic fluid volume. The largest amniotic fluid pocket measures 2.6 cm x 1.5 cm. The amniotic fluid index (LIBBY) is 7.83 cm. The placenta is fundal in location. There are Grade 2 placental changes. BIOMETRY: Age by LMP: 40 weeks, 2 days. SAULO by LMP: 05/28/2020. age by prior US: 38 weeks, 6 days. SAULO by prior US: 06/07/2020. US/OB Limited (No Biometrics) IMPRESSION: Normal amniotic fluid. Electronically Signed: Shay Summers, at 13:20 EST , Service support ,
== END ==
PROVIDERS: PCP Internal Medicine; Visit Provider Obstetrics & Gynecology
DX: O28.8 Other abnormal findings on antenatal screening of mother (principal)
CPT/HCPCS: 76815

== ENCOUNTER → 2020-05-30 18:29 | Outpatient (CLI) | payer OTHER, SELFPAY ==
[2020-05-30 13:05] VITALS: BMI 42.0
== END ==
PROVIDERS: PCP Internal Medicine; Referring Provider Obstetrics & Gynecology; Visit Provider Obstetrics & Gynecology
DX: Z34.90 Encounter for supervision of normal pregnancy, unspecified, unspecified trimester (principal); Z3A.00 Weeks of gestation of pregnancy not specified
CPT/HCPCS: 87635; C9803; U0003

== ENCOUNTER 2020-06-03 18:55 | Inpatient (IN) | payer OTHER, SELFPAY ==
[2020-05-04 14:04] VITALS: BMI 41.5
[2020-05-30 13:05] VITALS: BMI 42.0
[2020-06-03 19:24] VITALS: BP 153/79; PULSE 102; TEMP 37.1; O2SAT 98; O2SAT 99
[2020-06-03] MEDS: Lactated Ringers 1,000 ML 50 ML IV (19:30)
[2020-06-03 19:37] VITALS: BMI 43.3
[2020-06-03 19:44] LABS: Absolute Lymphocyte Count 2.28 X10^3/uL (0.83-4.51); Absolute Neutrophil Count 7.8 X10^3/uL (2.0-7.7); Basophil# 0.02 X10^3/uL; Basophil% 0.2 % (0-1); Eosinophil# 0.15 X10^3/uL; Eosinophils% 1.4 % (0-5); Hematocrit 35.1 % (37-47); Hemoglobin 12.3 g/dL (12.0-15.0); Lymphocyte # 2.28 X10^3/ul (4.0); Lymphocyte % 20.9 % (19-41); Mean Corpuscular Hgb 33.1 pg (27.0-32.0); Mean Corpuscular Volume 94.4 fL (81-99); Mean Platelet Vol. 10.2 fl (6.2-12.0); Monocyte# 0.62 X10^3/uL; Monocyte% 5.7 % (0-10); NRBC Flagged by Analyzer 0 % (0-5); Neutrophil # 7.79 X10^3/uL (2.7-7.7); Neutrophil % 71.3 % (47-70); Platelet Count 215 K/mm3 (150-450); RBC Distribution Width CV 11.9 % (11.6-14.6); RBC Distribution Width SD 40.2 fl (35.1-43.9); Red Blood Count 3.72 M/mm3 (4.2-5.4); White Blood Count 10.9 K/mm3 (4.4-11.0)
[2020-06-03 19:48] VITALS: BP 146/96; PULSE 93
[2020-06-03] MEDS: miSOPROStol 25 MCG TABLET PO (20:20)
--- NOTE | 2020-06-03 20:57 | HP.PCM_ITS ---
- Problem List (1) Encounter for induction of labor Status: Acute (2) 38 weeks gestation of Status: Acute Comment: electronic covid test ordered 05/04/2020sc (scheduled for 05/24/20 at 0950) (3) LIBBY (amniotic fluid index) borderline low Status: Acute Comment: 7, repeat WNL (4) Family history of spina bifida Status: Acute Comment: 4 MG FOLIC ACID DIALY IN , declines afp screen. Anatomy US normal (5) History of prior with small for gestational age Status: Acute Comment: growth us ordered, growth nl (6) Lab test positive for detection of COVID-19 virus Status: Acute Comment: mild symptoms, repeat testing ordered 05/30 (7) Status: Acute Qualifiers: Comment: nipt, carrier, and ntd screening declined. nl anatomy (8) Supervision of normal Status: Acute Qualifiers: Comment: PRR SAULO 05/28/20 boy PC [place] [facility] History and Physical Date of Admission: 06/03/20 Intake Vital Signs 05/30/20 Height 5 ft 8 in 05/30/20 Weight: 276 lb 2 oz 05/30/20 BP 108/80 Intake Visit Reasons: est ob 40w1d Nurse Wound Care Required: No Is patient in pain?: No Allergies No Known Allergies Allergy (Verified 05/30/20 13:06) Medications folic acid 1 mg tablet 4 mg PO DAILY 30 Days #120 tab 06/29/19 [Rx Confirmed 05/30/20] vitamin#30 30 mg iron-10 mg iron-folic acid 1 mg-omg3 capsule cap PO 11/17/19 [History Confirmed 05/30/20] Last Menstral Period: 07/02/17 Zika: Zika virus screening: Negative : No PFSH PFSH Medical History Fracture of phalanx of left index finger (Resolved) Pelvic fracture (Resolved) Right wrist fracture (Resolved) Seasonal allergies (Resolved) Toe fracture (Resolved) Surgical History History of tonsillectomy (Acute) History of wisdom tooth extraction, class II edentulism (Acute) Family History Mother Hypertension Father Hypertension Hyperlipidemia Cancer Grandmother Hypertension Grandfather Parkinson disease Social History (Updated 06/01/20 @ 07:[address] Ana Rosa Polanco MD) Smoking Status: Never smoker alcohol intake: never substance use type: does not use caffeine: Yes what type of physical activity do you participate in: walking frequency: 3-4 times per week seatbelt use: always do you feel safe at home: Yes additional social history: [employer] Patient is a nurse in Pregan[employer] History 1 Elective abortions Hx Para 1 Spontaneous abortions Hx # Term Pregnancies Ectopic pregnancies Hx # Pregnancies Multiple births # of living children Past Pregnancies Del. Date Name GA/Weeks Outcome Route Bth Weight Infant Gen Labor Lgth Anesthesia Del Locatn Provider FOB 04/14/18 Ky live - full term 6lbs 8oz M fernando epidural [facility] YEMI HPI est ob 40w1d: Details: KYLEE MUÑOZ is a 29 year old who presents for routine OB visit. OB Visit SAULO Calculator Estimated Delivery Date Method Current WG Current Estimate 05/28/20 Ultrasound #1 40w 4d Other Estimates 05/19/20 LMP (Certain) 41w 6d Expected Delivery Route/Plan Labor Preferences- labor support person: Fer[facility] pain management options preferred: epidural labor intervention preferences: open to standard interventions cut cord/dad catch: both : yes PP control planned: nothing to begin with discussed possible routes of delivery and associated risks: discussed possible delivery modalities and possible indications for each including R/B/A of , VAVD, FAVD, and CS. questions answered. special requests: none Specific Issue/Plans flu vaccine: will get at work tdap vaccine: given 03/10 rhogam: na LARC form signed: declined movement and labor precautions reviewed. Problem list reviewed and updated with the most current plan of care details and appropriate orders placed. Relevant counseling for the gestational age provided. Continue routine care and follow up unless otherwise noted in visit notes/problem list details Initial Weight: 233 lb Date EGA Weight BP Urine Prot Glucose FHR FuHt Pres Dilation Effaced St Visit Note 11/17/19 12w 3d 243 lb (+10 lb) 134/72 Negative Negative 160 Sm- no vb cramping nausea improved declined afp and genetic screening. 12/17/19 16w 5d 248 lb (+15 lb) 100/60 Negative Negative 150 SM- no vb lof no regular cramping. 02/10/20 24w 4d 260 lb (+27 lb) 124/72 150 24 GP - denies LOF/VB/DFM/Ctx. No complaints. Glucola next visit. 03/10/20 28w 5d 264 lb (+31 lb) 122/76 Negative Negative 140 28 SM- no vb lof good fm no regular ctx. 03/22/20 30w 3d 268 lb 4 oz (+35 lb 4 oz) 110/76 Negative Negative 140 30 GP - no LOF, VB, DFM, ctx. Still deciding on name. 04/07/20 32w 5d 269 lb (+36 lb) 116/80 Negative Negative 150 32 Cephalic SM- no vb lof good fm no regular ctx 04/21/20 34w 5d 272 lb 4 oz (+39 lb 4 oz) 118/70 118/70 Negative Negative 155 34 Cephalic GP - no LOF, VB, DFM, ctx. Denies complaints. Discussed labor preferences. 05/04/20 36w 4d 273 lb 6 oz (+40 lb 6 oz) 118/80 Negative Negative 140 36 Cephalic 0.5 50 -3 GP - no LOF, VB, DFM, ctx . Discussed timing of COVID testing and COVID precautions. GBS done today. 05/12/20 37w 5d 276 lb (+43 lb) 126/62 Negative Negative 150 37 Cephalic 1 50 -3 Sm- no vb lof good fm no regular ctx 05/19/20 38w 5d 276 lb 6 oz (+43 lb 6 oz) 108/82 Negative Negative 155 38 Cephalic GP - no LOF, VB, DFM, ctx. Denies complaints. Declines SVE. 05/26/20 39w 5d 140 39 Cephalic 1 SM- LIBBY 7 cm again, repeat on friday. discussed IOL 41 weeks 05/30/20 40w 2d 276 lb 2 oz (+43 lb 2 oz) 108/80 Negative Negative 140 Cephalic 1 SM- plan IOL friday with fb/cytotec. repeat LIBBY WNL. repeat covid testing today ACOG First Trimester First Trimester: Desire for , Alcohol, Tobacco Cessation, Illicit/Recreational Drug/Substance Use, Intimate Partner Violence, Barriers to care, Unstable Housing, Communication Barriers, Environmental/Work Hazards, Anticipated Course of Care, Toxoplasmosis Precations, Use of Any medic ations, Sexual activity, Exercise, Dental Care, Sauna/Hot tub use, Seat Belt use, Childbirth classes/Hospital facilities, Travel, Indications for US and Screening for Aneuploidy; discussed Diagnostics Diagnostics Details: HIV: Urine Culture: Sequential Screen: NIPT Screen: ROS Const Reports system reviewed and no additional complaints, except as docu Card Reports system reviewed and no additional complaints, except as docu Resp Reports system reviewed and no additional complaints, except as docu GI Reports system reviewed and no additional complaints, except as docu, Reports nausea Reports system reviewed and no additional complaints, except as docu Musc Reports system reviewed and no additional complaints, except as docu Exam Const General: cooperative, healthy appearing, comfortable, anxious HENMT Head: normal to inspection Nose: external nose normal Face and sinus: normal facial exam Neck Neck: normal visual inspection, full ROM, no lymphadenopathy Thyroid: thyroid normal Chest Chest palpation & inspection: normal inspection of the chest Resp Effort & Inspection: normal respiratory effort GI Inspection: normal to inspection Palpation: soft, other (gravid uterus) Other: infant vertex and appropriate size for gestational age Other: Cervical Exam: Extrem General: pedal edema Results POC Urinalysis 2 Dip (Clinic) Office Urine Glucose Negative Last Edit by Leandra No on 05/30/20 13:17 Office Urine Protein Negative Last Edit by Leandra No on 05/30/20 13:17 Assessment & Plan Problems 1. Family history of spina bifida Z82.79 4 MG FOLIC ACID DIALY IN , declines afp screen. Anatomy US normal 2. Supervision of normal Z34.90 PRR SAULO 05/28/20 boy [facility] [place] [facility] 3. Z34.90 nipt, carrier, and ntd screening declined. nl anatomy 4. Segmental and somatic dysfunction of sacral region M99.04 5. Segmental and somatic dysfunction of lumbar region M99.03 6. History of prior with small for gestational age Z87.59 growth us ordered, growth nl 7. LIBBY (amniotic fluid index) borderline low O28.8 7 repeat in 1 wk 8. 38 weeks gestation of Z3A.38 electronic covid test ordered 05/04/2020sc (scheduled for 05/24/20 at 0950) 9. Lab test positive for detection of COVID-19 virus U07.1 mild symptoms, repeat testing ordered 05/30 Patient presents IOL, plan management for with cytotec/pitocin/AROM. Pain management: plans epidural. GBS negative. Management of any complications: none I have reviewed the [facility] and made any clinically relevant updates. UPDATE- I have seen the patient and performed any clinically relevant updates to the history and physical exam. Michaelle Shipley MD
[2020-06-04] VITALS (46 sets, daily range): BP systolic 105–142; BP diastolic 52–90; PULSE 75–106; RESP 16; TEMP 36–37.2; O2SAT 89–99
[2020-06-04] MEDS: miSOPROStol 25 MCG TABLET PO (00:28)
[2020-06-04] MEDS: Oxytocin 30 units/NS 500 ml 30 UNITS/500 ML IV.SOLN IV (04:43)
[2020-06-04] MEDS: Lactated Ringers 500 ML 999 ML IV (10:06)
[2020-06-04] MEDS: fentaNYL-bupivacaine (epidural) 100 ML BAG EPIDURAL (11:09)
[2020-06-04] MEDS: Ondansetron 4 MG/2 ML Vial IV (13:08)
[2020-06-04] MEDS: Lactated Ringers 1,000 ML 200 ML IV (13:08)
[2020-06-04] MEDS: Amnioinfusion- 0.9% NS 1,000 ML IV.SOLN. 300 ML INTRA-UTER (14:20)
[2020-06-04] MEDS: Oxytocin 30 units/NS 500 ml 30 UNITS/500 ML IV.SOLN 334 UNITS IV (15:59)
--- NOTE | 2020-06-04 16:25 | PCM.OPRPT ---
Problem List (1) Encounter for induction of labor Status: Acute (2) 38 weeks gestation of Status: Acute Comment: electronic covid test ordered 05/04/2020sc (scheduled for 05/24/20 at 0950) (3) LIBBY (amniotic fluid index) borderline low Status: Acute Comment: 7, repeat WNL (4) Family history of spina bifida Status: Acute Comment: 4 MG FOLIC ACID DIALY IN , declines afp screen. Anatomy US normal (5) History of prior with small for gestational age Status: Acute Comment: growth us ordered, growth nl (6) Lab test positive for detection of COVID-19 virus Status: Acute Comment: mild symptoms, repeat testing ordered 05/30 (7) Status: Acute Qualifiers: Comment: nipt, carrier, and ntd screening declined. nl anatomy (8) Supervision of normal Status: Acute Qualifiers: Comment: PRR SAULO 05/28/20 boy ELOY Mcpherson [facility] Vaginal Delivery Maternal Presentation: Medically Indicated Induction 29-year-old G2, P1 at 41 weeks gestation admitted for induction of labor for late term. She was induced with Cytotec followed by Pitocin. She made cervical change to complete dilation within 4 hours of artificial rupture of membranes. Method of Induction: Pitocin, Cytotec Medical Reason for Induction: Post term Amniotic Membrane Rupture Type: Artificial Amniotic Fluid Description: Clear Final SAULO: 05/28/20 Gestational age: 41 Weeks and 0 Days Date of Procedure: 06/04/20 Pre-Operative Diagnosis: Term , induction of labor for late term Post-Operative Diagnosis: Same Surgery/ Procedure Performed: Spontaneous Vaginal Delivery Type of Anesthesia: Epidural Description of Procedure: Patient began pushing and delivered the head in the KAI presentation. The head was delivered atraumatically and no nuchal cord was noted. The anterior and posterior shoulders delivered without complication followed by the rest of the and the was placed on the maternal abdomen. Delayed cord clamping was employed for approximately 60 seconds. Cord was clamped and cut and gentle traction was applied to the cord and the placenta delivered spontaneously immediately following it was noted to be intact with three-vessel cord. The perineum and vagina were inspected and a midline second-degree laceration was noted and repaired in the standard fashion using 3-0 Vicryl rapide suture. EBL was 200 cc. Patient and tolerated delivery well. Presentation: Vertex, KAI Placental Delivery Description: Spontaneous Placenta Disposition: [facility] Cord Vessel Description: 3 Vessels Estimated Blood Loss: 200 cc Infant A gender: Male Episiotomy Description: None Laceration: Midline, Perineal Extension/lac, 2nd degree Medications given after delivery: IV Pitocin Complications: None Multi Select Codes - Urinary/Genital Urinary/Genital CPT Codes: 72699 Vaginal Delivery [facility]
--- NOTE | 2020-06-04 16:29 | DCINST_ITS ---
Discharge Diet: No Restrictions Discharge Activity: Return to Normal Activity, May not drive while taking narcotic pain medications., May Shower May resume sexual activity in: 4-6 weeks Additional Activity Instructions:: Nothing in the vagina for 4-6 weeks. You may return to work/school in 6 weeks. Call your doctor if your incision/area has: Continuous Slow Oozing, Sudden Increased Bleeding, Increased Pain/ Swelling, Increased Redness, Foul Smelling Discharge Additional Instructions: If you experience any of the following, contact your healthcare provider. * Bleeding that soaks a pad every hour for 2 hours * Fever 100.4 or higher * Unrelieved incision or abdominal pain * Swelling, redness, discharge or bleeding from your incision or episiotomy site * Your incision begins to separate * Problems urinating (including inability to urinate or burning while urinating). * Visual changes * Severe headache * Flu-like symptoms * Pain or redness in one of both of your breasts * Pain, warmth, tenderness or swelling in your legs, especially the calf area * Frequent nausea and vomiting * Symptoms of depression or anxiety If you experience any of the following, call 911 or go to the nearest Emergency Room. * Chest pain * Problems breathing * Seizure activity * Partial or complete paralysis of a body part, slurred speech, weakness or drooping of the face, or a sudden inability to walk or hold your balance Allergies/Adverse Reactions: Allergies No Known Allergies Allergy (Verified 06/03/20 19:31) Medications to take at Discharge folic acid 1 mg tablet 4 mg PO DAILY 30 Days #120 tab 06/29/19 vitamin#30 30 mg iron-10 mg iron-folic acid 1 mg-omg3 capsule cap PO 11/17/19 Aspirin [Aspirin, Baby] 81 06/03/20 When: Call to make an appointment with your doctor in 6 weeks. If you had elevated Blood Pressure or 4th degree laceration you will need to be seen in 2 weeks. Primary Care Physician: Alejandro Whitmore MD [Primary Care Provider] - Test Results: Test results from this visit will be discussed in further detail at your follow- up appointment, if applicable.
[2020-06-04] MEDS: Naproxen 250 MG Tablet 500 MG PO (18:42)
[2020-06-04] MEDS: 0.9% Saline Lock 10 ML Syringe IV (18:43)
[2020-06-04] MEDS: Aspirin 81 MG TAB.CHEW PO (21:50)
[2020-06-05 00:14] VITALS: BP 127/71; PULSE 84; RESP 14; TEMP 36.4
[2020-06-05 03:26] VITALS: BP 129/84; PULSE 86; RESP 16; TEMP 36.7
[2020-06-05] MEDS: Naproxen 250 MG Tablet 500 MG PO ×2 (03:33→12:38)
--- NOTE | 2020-06-05 07:54 | PCM.PN.OB ---
Patient Problems: Active and Suspected Problems (Last Reviewed 05/30/20 @ 13:05 by Leandra No) Encounter for induction of labor (Acute) Lab test positive for detection of COVID-19 virus (Acute) mild symptoms, repeat testing ordered 05/30 38 weeks gestation of (Acute) electronic covid test ordered 05/04/2020sc (scheduled for 05/24/20 at 0950) LIBBY (amniotic fluid index) borderline low (Acute) 7, repeat WNL History of prior with small for gestational age (Acute) growth us ordered, growth nl (Acute) nipt, carrier, and ntd screening declined. nl anatomy Supervision of normal (Acute) PRR SAULO 05/28/20 boy PC [place] [facility] Family history of spina bifida (Acute) 4 MG FOLIC ACID DIALY IN , declines afp screen. Anatomy US normal Subjective: Patient doing well without complaints. Tolerating PO. Ambulating and voiding without difficulty. Breast feeding well. Denies chest pain, shortness of breath, calf pain/swelling, fevers, chills, lightheadedness. - Physical Exam Vitals/I&O's: Vital Signs Temp Pulse Resp BP Pulse Ox 98.0 F 86 16 129/84 H 99 06/05/20 03:26 06/05/20 03:26 06/05/20 03:26 06/05/20 03:26 06/04/20 14:22 Oxygen Delivery Method Room Air Weight: 285 lb Body Mass Index (BMI) 43.3 Intake and Output for Last 24 Hours 06/03/20 06/04/20 06/05/20 23:59 23:59 23:59 Intake Total 45.83 / 45.83 2202.27 / 2202.27 Output Total 1700 / 1700 Balance 45.83 / 45.83 502.27 / 502.27 General: Alert, Oriented x3, Cooperative Abdomen: Soft, Non Tender, Non-Distended, - - FF below U Current Medications Acetaminophen (Acetaminophen 500 Mg Tablet) 1,000 mg PO Q8H PRN PRN PRN Reason: Pain Score 1-3 Aspirin (Aspirin 81 Mg Tab.Chew) [facility] Last Admin: 06/04/20 21:50 Dose: 81 mg Documented by: Bisacodyl (Bisacodyl 10 Mg Suppository) 10 mg RECTAL UD PRN PRN Reason: If no BM Dibucaine (Dibucaine 30 Gm Tube) 1 applic TOPICAL TID PRN PRN; Protocol PRN Reason: Discomfort Hydrocortisone (Hydrocortisone 2.5% Crm) 1 applic TOPICAL TID PRN PRN; Protocol PRN Reason: Discomfort Methylergonovine Maleate (Methylergonovine 0.2 Mg/Ml Ampul) 0.2 mg IM X1 PRN PRN Reason: Excess bleeding/uterine atony Naproxen (Naproxen 250 Mg Tablet) 500 mg PO Q8H PRN PRN PRN Reason: Pain Score 1-3 Last Admin: 06/05/20 03:33 Dose: 500 mg Documented by: Ondansetron HCl (Ondansetron 4 Mg/2 Ml Vial) 4 mg IV Q4H PRN PRN PRN Reason: Nausea Oxycodone HCl (Oxycodone 5 Mg Tablet) 5 - 10 mg PO Q4H PRN PRN PRN Reason: Pain Score 4-10 Senna/Docusate Sodium (Senna/Docusate Sodium 1 Tablet) 1 - 2 tablet PO DAILY PRN PRN PRN Reason: Constipation Simethicone (Simethicone 80 Mg Tablet) 80 mg PO PCHS PRN PRN Reason: Indigestion/Stomach pain Sodium Chloride (0.9% Saline Lock 10 Ml Syringe) 5 - 15 ml IV UD PRN PRN Reason: SALINE FLUSH Last Admin: 06/04/20 18:43 Dose: 10 ml Documented by: Medical Necessity - Tobacco Use Smoking Status: Never smoker Assessment/Plan All Active Problems (Last Reviewed 05/30/20 @ 13:05 by Leandra No) Encounter for induction of labor (Acute) Lab test positive for detection of COVID-19 virus (Acute) 38 weeks gestation of (Acute) LIBBY (amniotic fluid index) borderline low (Acute) History of prior with small for gestational age (Acute) Segmental and somatic dysfunction of lumbar region (Acute) Segmental and somatic dysfunction of sacral region (Acute) (Acute) Supervision of normal (Acute) Family history of spina bifida (Acute) Contraception (Resolved) Fracture of phalanx of left index finger (Resolved) Pelvic fracture (Resolved) Post-dates (Resolved) Right wrist fracture (Resolved) Seasonal allergies (Resolved) Supervision of normal (Resolved) Toe fracture (Resolved) s/p PPD # 1 1. routine post delivery care 2. breast feeding- support given 3. rh positive 4. rubella immune 5. home today
[2020-06-05] MEDS: Aspirin 81 MG TAB.CHEW PO (08:28)
[2020-06-05 08:30] VITALS: BP 109/54; PULSE 87; RESP 16; TEMP 36.6
[2020-06-05] MEDS: Senna/Docusate Sodium 1 Tablet PO (12:39)
[2020-06-05 12:40] VITALS: BP 117/61; PULSE 76; RESP 20; TEMP 36.9
[2020-06-05 17:06] VITALS: BP 126/68; PULSE 85; RESP 18; TEMP 36.6
== END 2020-06-05 17:40 | disposition home or self-care (01) | DRG 805 ==
PROVIDERS: Admitting Provider Obstetrics & Gynecology; PCP Internal Medicine; Referring Provider Obstetrics & Gynecology; Visit Provider Obstetrics & Gynecology
DX: O48.0 Post-term pregnancy (principal); U07.1 COVID-19; O70.1 Second degree perineal laceration during delivery; O98.52 Other viral diseases complicating childbirth; Z82.79 Family history of other congenital malformations, deformations and chromosomal abnormalities; Z3A.41 41 weeks gestation of pregnancy; Z37.0 Single live birth
CPT/HCPCS: 59025; 59050; 85025; 86850; 86900; 86901; 99218; J7030; J7120; A4216; G0378; J2405

== ENCOUNTER → 2021-12-11 | Outpatient (CLI) | payer OTHER, SELFPAY ==
[2021-12-13 17:27] LABS: HPV APTIMA, High Risk Negative (Negative)
== END | disposition home or self-care (01) ==
LOC: LABSPEC 14:06
PROVIDERS: PCP Internal Medicine; Visit Provider Obstetrics & Gynecology
DX: Z12.4 Encounter for screening for malignant neoplasm of cervix (principal)
CPT/HCPCS: 87624; 88175; G0145

== ENCOUNTER → 2023-01-13 | Outpatient (CLI) | payer OTHER, SELFPAY ==
--- NOTE | 2023-01-13 18:18 | US_ITS ---
ACR Level 3 findings have been noted. An addendum which confirms receipt of the report will follow. EXAM: US , TRANSVAGINAL CLINICAL INDICATION: dating ultrasound TECHNIQUE: Real-time transvaginal obstetrical ultrasound of the maternal pelvis and a first trimester with image documentation. Transvaginal imaging was used for better evaluation of the fetus and adnexa. COMPARISON: No relevant prior studies available. FINDINGS: UTERUS/CERVIX: There is an intrauterine gestation sac with yolk sac and pole the uterine fundus. Mean sac diameter 2.1 cm corresponds to 7 weeks 0 days gestation. pole CRL 1.2 cm corresponds to 7 weeks 3 days gestation. 6 mm yolk sac. Normal early heart rate of 144 bpm. There is a crescent of hypoechoic fluid anterolateral to the right of the gestation sac without significant mass effect, consistent with perigestational-subchorionic hemorrhage or this measures 2.1 cm x 0.6 cm x 1.3 cm. The uterus measures 11.3 cm x 6 cm x 6.2 cm with a few small nabothian cervical cysts. OVARIES: Unremarkable. No mass. Left ovary 3.8 cm x 3.6 cm x 2.7 cm. Right ovary 3.3 cm x 3.8 cm x 1.6 cm. Documented blood flow in the ovaries. FREE FLUID: Trace cul-de-sac fluid. US/Transvaginal w/Preg US IMPRESSION: Single live intrauterine . [place] shaped subchronic-perigestational hemorrhage, 2.1 cm maximum diameter. No significant mass effect on the gestation sac Electronically Signed: Sharon Tejeda MD at 8:22 EDT ,
== END | disposition home or self-care (01) ==
LOC: US 18:17
PROVIDERS: PCP Internal Medicine; Visit Provider Obstetrics & Gynecology
DX: Z34.90 Encounter for supervision of normal pregnancy, unspecified, unspecified trimester (principal)
CPT/HCPCS: 76817

== ENCOUNTER → 2023-01-13 | Outpatient (CLI) | payer OTHER, SELFPAY ==
[2023-01-15 04:07] LABS: Chlamydia By Nucleic Acid AMP Negative (Negative); Gonococcus By Nucleic Acid AMP Negative (Negative)
== END | disposition home or self-care (01) ==
PROVIDERS: PCP Internal Medicine; Referring Provider Obstetrics & Gynecology; Visit Provider Obstetrics & Gynecology
DX: O09.90 Supervision of high risk pregnancy, unspecified, unspecified trimester (principal); Z3A.00 Weeks of gestation of pregnancy not specified
CPT/HCPCS: 87086; 87088; 87491; 87591

== ENCOUNTER → 2023-02-12 | Outpatient (CLI) | payer OTHER, SELFPAY ==
[2023-02-12 08:18] LABS: Absolute Lymphocyte Count 2.23 X10^3/uL (0.83-4.51); Absolute Neutrophil Count 4.1 X10^3/uL (2.0-7.7); Basophil# 0.01 X10^3/uL; Basophil% 0.1 % (0-1); Eosinophil# 0.15 X10^3/uL; Eosinophils% 2.2 % (0-5); Hematocrit 37.6 % (37-47); Hemoglobin 12.9 g/dL (12.0-15.0); Lymphocyte # 2.23 X10^3/ul (0.83-4.51); Mean Corp Hgb Conc 34.3 g/dL (32-36); Mean Corpuscular Hgb 31.8 pg (27.0-32.0); Mean Corpuscular Volume 92.6 fL (81-99); Mean Platelet Vol. 9.5 fl (6.2-12.0); Monocyte# 0.51 X10^3/uL; Monocyte% 7.3 % (0-10); NRBC Flagged by Analyzer 0 % (0-5); Neutrophil # 4.06 X10^3/uL (2.7-7.7); Neutrophil % 58.3 % (47-70); Platelet Count 195 K/mm3 (150-450); RBC Distribution Width CV 11.8 % (11.6-14.6); RBC Distribution Width SD 40.1 fl (35.1-43.9); Red Blood Count 4.06 M/mm3 (4.2-5.4)
[2023-02-12 08:43] LABS: Glucose Challenge Gest 1H 50g 111 mg/dL (70-140)
[2023-02-12 10:37] LABS: HIV - WCH Non-Reactive (Nonreactive); Hepatitis B Surface Antigen Preliminary Reactive (Nonreactive); Hepatitis C Antibody Non-Reactive (Nonreactive); Rubella IgG Reactive (Nonreactive); Syphilis Antibodies Non-reactive
== END | disposition home or self-care (01) ==
PROVIDERS: PCP Internal Medicine; Referring Provider Obstetrics & Gynecology; Visit Provider Obstetrics & Gynecology
DX: O09.90 Supervision of high risk pregnancy, unspecified, unspecified trimester (principal); Z3A.00 Weeks of gestation of pregnancy not specified
CPT/HCPCS: 36415; 82950; 85025; 86703; 86762; 86780; 86803; 86850; 86900; 86901; 87340

== ENCOUNTER → 2023-04-10 | Outpatient (CLI) | payer OTHER, SELFPAY ==
--- NOTE | 2023-04-10 11:26 | US_ITS ---
STUDY: SECOND AND THIRD TRIMESTER OBSTETRICAL ULTRASOUND REASON FOR EXAM: Female, 32 years old anatomy LMP: 01/13/2023. TECHNIQUE: Transabdominal TECHNICAL QUALITY: Adequate. PRIOR ULTRASOUND: 01/13/2023. FINDINGS: There is a single intrauterine fetus. The fetus is in a variable presentation. There is demonstrated cardiac activity with a heart rate of 148 bpm. There is a normal amniotic fluid volume. The placenta is left lateral in location and is not low lying. There are Grade 0 placental changes. The cervix measures 5.42 cm in length. The cervix is closed. The bilateral adnexal regions are normal. BIOMETRY: BPD: 4.61 cm: 20 weeks, 0 days HC: 17.12 cm: 19 weeks, 5 days AC: 14.39 cm: 19 weeks, 5 days FL: 3.08 cm: 19 weeks, 4 days CI: 76.2 FL/BPD: 66.7 FL/AC: 21.4 HC/AC: 1.2 age by current US: 19 weeks, 5 days. SAULO by current US: 08/30/2023. Estimated weight: 307 grams, +/- 46 grams, 43.14 %. Age by LMP: 19 weeks, 5 days. SAULO by LMP: 08/30/2023. ANATOMY: Gender: Female Cranium: Normal lateral ventricles. Normal choroid plexus. Normal cerebellum. Normal cisterna magna. Normal face, nose and lips. Chest: Normal 4-chamber heart. Abdomen/Pelvis: Normal diaphragm. Normal stomach. Normal abdominal wall. Normal cord insertion. Normal 3 vessel cord. Normal kidneys. Normal bladder. Spine: Normal cervical spine. Normal thoracic spine. Normal lumbar spine. Normal sacrum. Extremities: Normal bilateral upper extremities. Normal bilateral lower extremities. IMPRESSION: Single intrauterine with ultrasound age of 19 weeks and 5 days and estimated date of delivery of 08/30/2023. Variable presentation. Left lateral placenta with no evidence of previa. Normal amniotic fluid. Normal cardiac activity. No gross anomaly. Electronically Signed: Martha Walton MD at 20:46 EDT , STUDY: FIRST TRIMESTER OBSTETRICAL ULTRASOUND REASON FOR EXAM: Female, 32 years old anatomy LMP: 01/13/2023. TECHNIQUE: Transabdominal and Transvaginal TECHNICAL QUALITY: Adequate. PRIOR ULTRASOUND: None. FINDINGS: There is a single intrauterine fetus. The fetus is in a variable presentation. There is demonstrated cardiac activity with a heart rate of 148 bpm. There is a normal amniotic fluid volume. The placenta is left lateral in location and is not low lying. There are Grade 0 placental changes. The cervix measures 5.42 cm in length. The cervix is closed. The bilateral adnexal regions are normal. BIOMETRY: BPD: 4.61 cm: 20 weeks, 0 days HC: 17.12 cm: 19 weeks, 5 days AC: 14.39 cm: 19 weeks, 5 days FL: 3.08 cm: 19 weeks, 4 days CI: 76.2 FL/BPD: 66.7 FL/AC: 21.4 HC/AC: 1.2 age by current US: 19 weeks, 5 days. SAULO by current US: 08/30/2023. Estimated weight: 307 grams, +/- 46 grams, 43.14 %. Age by LMP: 19 weeks, 5 days. SAULO by LMP: 08/30/2023. ANATOMY: Gender: Female Cranium: Normal lateral ventricles. Normal choroid plexus. Normal cerebellum. Normal cisterna magna. Normal face, nose and lips. Chest: Normal 4-chamber heart. Abdomen/Pelvis: Normal diaphragm. Normal stomach. Normal abdominal wall. Normal cord insertion. Normal 3 vessel cord. Normal kidneys. Normal bladder. Spine: Normal cervical spine. Normal thoracic spine. Normal lumbar spine. Normal sacrum. Extremities: Normal bilateral upper extremities. Normal bilateral lower extremities. US/OB Anatomy Scan
== END | disposition home or self-care (01) ==
LOC: OPUS 11:23 → US 11:25
PROVIDERS: PCP Internal Medicine; Referring Provider Nurse Practitioner Women's Health; Visit Provider Nurse Practitioner Women's Health
DX: O09.90 Supervision of high risk pregnancy, unspecified, unspecified trimester (principal); Z3A.00 Weeks of gestation of pregnancy not specified
CPT/HCPCS: 76805; 76817

== ENCOUNTER → 2023-05-29 | Outpatient (CLI) | payer OTHER, SELFPAY ==
[2023-05-29 10:00] LABS: Absolute Lymphocyte Count 1.88 X10^3/uL (0.83-4.51); Absolute Neutrophil Count 4.5 X10^3/uL (2.0-7.7); Basophil# 0.02 X10^3/uL; Basophil% 0.3 % (0-1); Eosinophil# 0.15 X10^3/uL; Eosinophils% 2.2 % (0-5); Hematocrit 30.9 % (37-47); Hemoglobin 10.9 g/dL (12.0-15.0); Lymphocyte # 1.88 X10^3/ul (0.83-4.51); Lymphocyte % 27.2 % (19-41); Mean Corp Hgb Conc 35.3 g/dL (32-36); Mean Corpuscular Hgb 33.1 pg (27.0-32.0); Mean Corpuscular Volume 93.9 fL (81-99); Mean Platelet Vol. 9.4 fl (6.2-12.0); Monocyte# 0.36 X10^3/uL; Monocyte% 5.2 % (0-10); NRBC Flagged by Analyzer 0 % (0-5); Neutrophil # 4.48 X10^3/uL (2.7-7.7); Platelet Count 200 K/mm3 (150-450); RBC Distribution Width CV 12.3 % (11.6-14.6); RBC Distribution Width SD 42.3 fl (35.1-43.9); Red Blood Count 3.29 M/mm3 (4.2-5.4); White Blood Count 6.9 K/mm3 (4.4-11.0)
[2023-05-29 10:11] LABS: Glucose Challenge Gest 1H 50g 132 mg/dL (70-140)
[2023-05-29 10:44] LABS: HIV - WCH Non-Reactive (Nonreactive); Syphilis Antibodies Non-reactive
== END | disposition home or self-care (01) ==
PROVIDERS: PCP Internal Medicine; Referring Provider Obstetrics & Gynecology; Visit Provider Obstetrics & Gynecology
DX: O09.90 Supervision of high risk pregnancy, unspecified, unspecified trimester (principal); Z3A.00 Weeks of gestation of pregnancy not specified
CPT/HCPCS: 36415; 82950; 85025; 86703; 86780

== ENCOUNTER → 2023-07-23 | Outpatient (CLI) | payer OTHER, SELFPAY ==
[2023-07-23 10:34] LABS: Absolute Lymphocyte Count 2.28 X10^3/uL (0.83-4.51); Absolute Neutrophil Count 4.9 X10^3/uL (2.0-7.7); Basophil# 0.02 X10^3/uL; Basophil% 0.3 % (0-1); Eosinophil# 0.12 X10^3/uL; Eosinophils% 1.5 % (0-5); Hematocrit 33.7 % (37-47); Hemoglobin 11.3 g/dL (12.0-15.0); Lymphocyte # 2.28 X10^3/ul (0.83-4.51); Mean Corp Hgb Conc 33.5 g/dL (32-36); Mean Corpuscular Hgb 31.7 pg (27.0-32.0); Mean Corpuscular Volume 94.7 fL (81-99); Mean Platelet Vol. 9.2 fl (6.2-12.0); Monocyte# 0.48 X10^3/uL; Monocyte% 6.1 % (0-10); NRBC Flagged by Analyzer 0 % (0-5); Neutrophil # 4.91 X10^3/uL (2.7-7.7); Neutrophil % 62.6 % (47-70); Platelet Count 222 K/mm3 (150-450); RBC Distribution Width CV 12.5 % (11.6-14.6); RBC Distribution Width SD 43.6 fl (35.1-43.9); Red Blood Count 3.56 M/mm3 (4.2-5.4); White Blood Count 7.9 K/mm3 (4.4-11.0)
--- OUTSIDE RECORDS SUMMARY | 2023-07-23 10:39 | XMS RPT_ITS | CCD ---
Author Name Unknown Address [facility] [address] [place] [address] Organization [facility] Care Team Providers Care Patient Financial Advocate Name Role Phone FAINA OLGA LIDIA GABINO Unavailable Unavailable JUDI VÁSQUEZ Unavailable Unavailabl e FAHAD, JUDI MCCRARY Unavailable Unavailabl e Problems Active Problems Problem Classification Problem Date Documented Da te Episodic/Chronic Other nutritional; endocrine; and metabolic disorders (2 sources) Obesity, unspecified; Translations: [Obesity, unspecified] Onset: 04-03-2017 Chronic Past or Other Problems Problem Classification Problem Date Documented Da te Episodic/Chronic Medical examination/evaluation (2 sources) Encounter for general adult medical examination without abnormal findings; Translations: [Encounter for general adult medical examination without abnormal findings] Onset: 04-03-2017 Episodic Unclassified (4 sources) Encounter for screening for malignant neoplasm of cervix; Translations: [Encounter for screening for lipoid disorders] Onset: 04-03-2017 Episodic Encounters Encounter Date Encounter Type Care Provider Facility Start: 05-12-2017 End: 05-12-2017 Ambulatory OLGA LIDIA EISENBERG [facility] Start: 04-03-2017 End: 04-07-2017 Ambulatory JUDI HERMANNSHAGUFTA VÁSQUEZ [facility] Payers Date Payer Category Payer Unknown [id number] Summary Purpose Family History No Family History Records FoundNo Family History Records Found Advance Directives No Advanced Directives Records FoundNo Advanced Directives Records Found Additional Source Comments INFORMATION SOURCE (unrecogn ized section and content) DATE CREATED AUTHOR AUTHOR'S BHARGAV ATION 12/23/2017 [facility] FOR RECORDS PERTAINING TO PATIENTS WHO ARE OR HAVE BEEN ENROLLED IN A CHEMICAL DEPENDENCY/SUBSTANCEABUSE PROGRAM, SOME INFORMATION MAY BE OMITTED. This clinical summary was aggregated from multiple sources. Caution should be exercised in using it in the provision of clinical care. This summary normalizes information from multiple sources, and as a consequence, information in this document may materially change the coding, format and clinical context of patient data. In addition, data may be omitted in some cases. CLINICAL DECISIONS SHOULD BE BASED ON THE PRIMARY CLINICAL RECORDS. [employer]. provides no warranty or guarantee of the accuracy or completeness of information in this document.
== END | disposition home or self-care (01) ==
PROVIDERS: Nurse Practitioner Women's Health; PCP Internal Medicine; Referring Provider Obstetrics & Gynecology; Visit Provider Obstetrics & Gynecology
DX: O99.019 Anemia complicating pregnancy, unspecified trimester (principal); Z3A.00 Weeks of gestation of pregnancy not specified
CPT/HCPCS: 36415; 85025

== ENCOUNTER → 2023-08-01 | Outpatient (CLI) | payer OTHER, SELFPAY ==
--- NOTE | 2023-08-01 08:57 | US_ITS ---
STUDY: SECOND AND THIRD TRIMESTER OBSTETRICAL ULTRASOUND - LIMITED REASON FOR EXAM: Female, 32 years old h/o covid in , breech LMP: November 23, 2022 PRIOR ULTRASOUND: Comparison is made with prior study April 10, 2023. TECHNIQUE: Transabdominal TECHNICAL QUALITY: Adequate. FINDINGS: There is a single intrauterine fetus. The fetus is in a breech presentation. There is demonstrated cardiac activity with a heart rate of 142 bpm. There is a normal amniotic fluid volume. The largest amniotic fluid pocket measures 5.6 cm. The amniotic fluid index (LIBBY) is 13.9 cm. The placenta is left lateral in location and is not low lying. There are Grade 2 placental changes. The cervix was not measured due to the size of the fetus. BIOMETRY: BPD: 8.73 cm: 35 weeks, 2 days HC: 33.94 cm: 39 weeks, 0 days AC: 33.52 cm: 37 weeks, 3 days FL: 6.87 cm: 35 weeks, 2 days Age by LMP: 35 weeks, 6 days. SAULO by LMP: August 30, 2023. age by prior US: 35 weeks, 6 days. SAULO by prior US: August 30, 2023. age by current US: 37 weeks, 0 days. SAULO by current US: August 22, 2023. Estimated weight: 2986 grams, +/- 448 grams, 71 percentile. US/OB Limited With Biometrics IMPRESSION: Single live uterine gestation with a mean gestational age of 35 weeks and 6 days. The measurements obtained today following within the normal expected range. Electronically Signed: Shay Summers MD at 10:47 EST ,
== END | disposition home or self-care (01) ==
LOC: OPUS 08:56
PROVIDERS: PCP Internal Medicine; Referring Provider Obstetrics & Gynecology; Visit Provider Obstetrics & Gynecology
DX: O32.1XX0 Maternal care for breech presentation, not applicable or unspecified (principal); O98.513 Other viral diseases complicating pregnancy, third trimester; U07.1 COVID-19; Z3A.00 Weeks of gestation of pregnancy not specified
CPT/HCPCS: 76816

== ENCOUNTER → 2023-08-08 | Outpatient (CLI) | payer OTHER, SELFPAY ==
--- OUTSIDE RECORDS SUMMARY | 2023-08-08 18:13 | XMS RPT_ITS | CCD ---
Author Name Unknown Address [facility] [employer] [address] [place] [address] Organization [facility] Care Team Providers Care Data Control Clerk Name Role Phone FAINA OLGA LIDIA GABINO [...] 05-12-2017 End: 05-12-2017 Ambulatory OLGA LIDIA EISENBERG [facility] Start: 04-03-2017 End: 04-07-2017 Ambulatory JUDI HERMANNSHAGUFTA VÁSQUEZ [facility] Payers Date Payer Category Payer Unknown [id number] Summary Purpose Family History No Family History Records FoundNo Family History Records Found Advance Directives No Advanced Directives Records FoundNo Advanced Directives Records Found Additional Source Comments INFORMATION SOURCE (unrecogn ized section and content) DATE CREATED AUTHOR AUTHOR'S BHARGAV ATION 12/23/2017 [facility] FOR RECORDS PERTAINING TO PATIENTS WHO ARE [...] BE BASED ON THE PRIMARY CLINICAL RECORDS. [employer] provides no warranty or guarantee of the accuracy or completeness of information in this document.
== END | disposition home or self-care (01) ==
PROVIDERS: PCP Internal Medicine; Referring Provider Obstetrics & Gynecology; Visit Provider Obstetrics & Gynecology
DX: O09.90 Supervision of high risk pregnancy, unspecified, unspecified trimester (principal); Z3A.00 Weeks of gestation of pregnancy not specified
CPT/HCPCS: 87081

== ENCOUNTER 2023-08-11 11:05 | Outpatient (CLI) | payer OTHER, SELFPAY ==
[2023-08-11 11:22] VITALS: BP 137/75; PULSE 97; TEMP 36.8
--- OUTSIDE RECORDS SUMMARY | 2023-08-11 11:23 | XMS RPT_ITS | CCD ---
Author Name Unknown Address [facility] [address] [place] [address] Organization [facility] Care Team Providers Care Track Patrol Name Role Phone FAINA OLGA LIDIA GABINO [...] 05-12-2017 End: 05-12-2017 Ambulatory OLGA LIDIA EISENBERG [facility] Start: 04-03-2017 End: 04-07-2017 Ambulatory JUDI HERMANNSHAGUFTA VÁSQUEZ [facility] Payers Date Payer Category Payer Unknown [id number] Summary Purpose Family History No Family History Records FoundNo Family History Records Found Advance Directives No Advanced Directives Records FoundNo Advanced Directives Records Found Additional Source Comments INFORMATION SOURCE (unrecogn ized section and content) DATE CREATED AUTHOR AUTHOR'S BHARGAV ATION 12/23/2017 [facility] FOR RECORDS PERTAINING TO PATIENTS WHO ARE [...] BE BASED ON THE PRIMARY CLINICAL RECORDS. [employer] provides no warranty or guarantee of the accuracy or completeness of information in this document.
[2023-08-11 11:26] VITALS: BMI 43.2
[2023-08-11] MEDS: Lactated Ringers 1,000 ML 125 ML IV (11:30)
--- NOTE | 2023-08-11 15:03 | PCM.OP.BLANK ---
Operative Report Preprocedure diagnosis: Breech presentation Post procedure diagnosis: Vertex presentation Procedure: External cephalic version Surgeon: Ana Rosa Polanco certified ophthalmic assistant: tana bower EBL: None Complications: None Anesthesia: None Special medications: Terbutaline Seizure details: The fetus was found to be in breech presentation informed by ultrasound. Patient had an IV in place, normal amniotic fluid, no contraindications to a vaginal delivery, and reactive nonstress test prior to the procedure. Patient was placed in the dorsal supine position after the terbutaline was given. Ultrasound gel was applied to the patient's abdomen and using constant upward pressure to elevate the buttocks out of the pelvic inlet constant pressure was applied to the buttocks and to the area behind the back of the neck and head to encourage a forward roll of the fetus. Constant pressure was applied and slowly the infant was converted to a vertex presentation. Bedside ultrasound was used to confirm vertex presentation and reassuring heart rate. Patient was replaced on the NST and monitored to assure reassuring status. No complications. Procedures Urinary/Genital [id number]: [id number] ECV
== END 2023-08-11 14:40 | disposition home or self-care (01) ==
LOC: WPOUT 11:07 → WP 11:07
PROVIDERS: PCP Internal Medicine; Referring Provider Obstetrics & Gynecology; Visit Provider Obstetrics & Gynecology
DX: O32.1XX0 Maternal care for breech presentation, not applicable or unspecified (principal); Z3A.00 Weeks of gestation of pregnancy not specified
CPT/HCPCS: 96360; 96361; 59025; 59050; 59412; 99221; J7120; G0378

== ENCOUNTER → 2023-08-21 | Outpatient (CLI) | payer OTHER, SELFPAY ==
--- NOTE | 2023-08-21 15:32 | US_ITS ---
STUDY: SECOND AND THIRD TRIMESTER OBSTETRICAL ULTRASOUND - LIMITED REASON FOR EXAM: Female, 33 years old low libby LMP: 11/23/2022. PRIOR ULTRASOUND: None. TECHNIQUE: 08/01/2023. TECHNICAL QUALITY: Adequate. FINDINGS: There is a single intrauterine fetus. The fetus is in a cephalic presentation. There is demonstrated cardiac activity with a heart rate of 148 bpm. There is a normal amniotic fluid volume. The largest amniotic fluid pocket measures 5.2 cm. The amniotic fluid index (LIBBY) is 13.8 cm. The placenta is left lateral in location and is not low lying. There are Grade 1 placental changes. The cervix is obscured. Age by LMP: 38 weeks, 5 days. SAULO by LMP: 08/30/2023. SAULO by prior US: 08/22/2023. US/OB Limited (No Biometrics) IMPRESSION: Single intrauterine with LMP age of 38 weeks and 5 days. Normal amniotic fluid. Normal cardiac activity. Electronically Signed: Martha Walton MD at 21:49 EST ,
--- OUTSIDE RECORDS SUMMARY | 2023-08-21 19:11 | XMS RPT_ITS | CCD ---
Author Name Unknown Address [facility] [address] [place] [address] Organization [facility] Care Team Providers Care Lead Refiner Name Role Phone FAINA OLGA LIDIA GABINO [...] 05-12-2017 End: 05-12-2017 Ambulatory OLGA LIDIA EISENBERG [facility] Start: 04-03-2017 End: 04-07-2017 Ambulatory JUDI HERMANNSHAGUFTA VÁSQUEZ [facility] Payers Date Payer Category Payer Unknown [id number] Summary Purpose Family History No Family History Records FoundNo Family History Records Found Advance Directives No Advanced Directives Records FoundNo Advanced Directives Records Found Additional Source Comments INFORMATION SOURCE (unrecogn ized section and content) DATE CREATED AUTHOR AUTHOR'S BHARGAV ATION 12/23/2017 [facility] FOR RECORDS PERTAINING TO PATIENTS WHO [...] BE BASED ON THE PRIMARY CLINICAL RECORDS. [employer]. provides no warranty or guarantee of the accuracy or completeness of information in this document.
== END | disposition home or self-care (01) ==
LOC: US 15:32
PROVIDERS: PCP Internal Medicine; Referring Provider Advanced Practice Midwife; Visit Provider Advanced Practice Midwife
DX: O28.8 Other abnormal findings on antenatal screening of mother (principal); Z3A.00 Weeks of gestation of pregnancy not specified
CPT/HCPCS: 76815

== ENCOUNTER 2023-09-02 07:10 | Inpatient (IN) | payer OTHER, SELFPAY ==
[2023-08-11 11:22] VITALS: RESP 16
[2023-09-02] VITALS (51 sets, daily range): BP systolic 117–165; BP diastolic 57–101; PULSE 78–109; RESP 17–18; TEMP 35.8–37.1; O2SAT 81–100; BMI 43.5
--- OUTSIDE RECORDS SUMMARY | 2023-09-02 07:27 | XMS RPT_ITS | CCD ---
Author Name Unknown Address [facility] [address] [place] [address] Organization [facility] Care Team Providers Care Director Graphics Name Role Phone FAINA OLGA LIDIA GABINO [...] 05-12-2017 End: 05-12-2017 Ambulatory OLGA LIDIA EISENBERG [facility] Start: 04-03-2017 End: 04-07-2017 Ambulatory JUDI HERMANNSHAGUFTA VÁSQUEZ [facility] Payers Date Payer Category Payer Unknown [id number] Summary Purpose Family History No Family History Records FoundNo Family History Records Found Advance Directives No Advanced Directives Records FoundNo Advanced Directives Records Found Additional Source Comments INFORMATION SOURCE (unrecogn ized section and content) DATE CREATED AUTHOR AUTHOR'S BHARGAV ATION 12/23/2017 [facility] FOR RECORDS PERTAINING TO PATIENTS WHO ARE [...] BE BASED ON THE PRIMARY CLINICAL RECORDS. [employer]. provides no warranty or guarantee of the accuracy or completeness of information in this document.
[2023-09-02] MEDS: Lactated Ringers 1,000 ML 50 ML IV (07:50)
[2023-09-02 08:06] LABS: Absolute Neutrophil Count 5.1 X10^3/uL (2.0-7.7); Basophil# 0.02 X10^3/uL; Basophil% 0.3 % (0-1); Eosinophil# 0.09 X10^3/uL; Eosinophils% 1.2 % (0-5); Hemoglobin 11.4 g/dL (12.0-15.0); Lymphocyte % 26.4 % (19-41); Mean Corp Hgb Conc 34.5 g/dL (32-36); Mean Corpuscular Hgb 31.8 pg (27.0-32.0); Mean Corpuscular Volume 91.9 fL (81-99); Mean Platelet Vol. 9.8 fl (6.2-12.0); Monocyte# 0.34 X10^3/uL; Monocyte% 4.5 % (0-10); NRBC Flagged by Analyzer 0 % (0-5); Neutrophil % 67.1 % (47-70); Platelet Count 213 K/mm3 (150-450); RBC Distribution Width CV 12.4 % (11.6-14.6); RBC Distribution Width SD 41.5 fl (35.1-43.9); Red Blood Count 3.59 M/mm3 (4.2-5.4); White Blood Count 7.6 K/mm3 (4.4-11.0)
[2023-09-02] MEDS: 0.9% Normal Saline Single 100 ML IV.SOLN. INTRA-UTER (08:24)
[2023-09-02] MEDS: Oxytocin 15 Units/NS 250ml 15 UNITS/250 ML IV.SOLN 2 UNITS IV (08:48)
[2023-09-02 08:49] LABS: Syphilis Antibodies Non-reactive
[2023-09-02] MEDS: CHLORHEXIDINE GLUC 2% CLOTH 1 EACH TOWELETTE TOPICAL (09:43)
[2023-09-02] MEDS: LACTATED RINGERS 500 ML 999 ML IV (13:26)
[2023-09-02] MEDS: fentaNYL-bupivacaine (epidural) 100 ML BAG EPIDURAL (14:15)
[2023-09-02] MEDS: Ondansetron 4 MG/2 ML Vial IV (16:06)
[2023-09-02] MEDS: 0.9% Saline Lock 10 ML Syringe IV ×2 (16:06→22:37)
--- NOTE | 2023-09-02 19:20 | HP.PCM.OB_ITS ---
HPI - General General Date of Admission: 09/02/23 HPI Narrative KYLEE MUÑOZ, is a 33 F who presents for IOL secondary to obesity. no vb lof admits good fm. Maternal Data Information SAULO Calculator Estimated Delivery Date Method Current WG Current Estimate 08/30/23 Ultrasound #1 40w 3d Other Estimates 08/21/23 LMP (Certain) 41w 5d PFSH PFSH Medical History (Updated 09/02/23 @ 08:38 by Gayla Woods) Family history of spina bifida Fracture of phalanx of left index finger Pelvic fracture Right wrist fracture Seasonal allergies Superficial varicosities Toe fracture Home Medications cholecalciferol (vitamin D3) 50 mcg (2,000 unit) capsule 50 mcg PO DAILY vitamin 01/13/23 [History Last Taken Unknown] docosahexaenoic acid 200 mg capsule ( DHA) 1 mg PO DAILY 01/13/23 [History Last Taken 09/01/23] magnesium citrate 100 mg tablet 100 mg PO DAILY constipation 01/13/23 [History Last Taken 09/01/23] ferrous sulfate 325 mg (65 mg iron) tablet (iron) 325 mg PO DAILY Anemia 08/11/23 [History Last Taken Unknown] Allergy/AdvReac Type Severity Reaction Status Date / Time No Known Allergies Allergy Verified 09/02/23 08:25 Family History Mother Hypertension Father Hypertension Hyperlipidemia Cancer Grandmother Hypertension Grandfather Parkinson disease Surgical History History of tonsillectomy History of wisdom tooth extraction, class II edentulism Social History Smoking Status: Never smoker alcohol intake: never substance use type: does not use caffeine: Yes what type of physical activity do you participate in: walking frequency: 3-4 times per week seatbelt use: always do you feel safe at home: Yes additional social history: [employer] Patient is a nurse in History 2 Elective abortions Hx Para 2 Spontaneous abortions Hx # Term Pregnancies 2 Ectopic pregnancies Hx # Pregnancies Multiple births # of living children 2 Past Pregnancies Del. Date Name GA/Weeks Outcome Route Bth Weight Gen Labor Lgth Anesthesia Del Locatn Provider FOB 04/14/18 Ky live - full term 6lbs 8oz Male epi dural [facility] YEMI 06/04/20 Gerardo 40 live - full term 7lbs 9oz Male [facility] Quinten Visit Details Expected Delivery Route/Plan Labor Preferences- CB/BF classes: no labor support person: Fercho labor intervention preferences: [] pain management options preferred: epidural cut cord/dad catch: yes : yes PP control planned: discussed/IUD discussed possible routes of delivery and associated risks: [] special requests: [] Plans Covid status: [] Flu vaccine: given Tdap vaccine: done Rhogam: NA LARC form signed: YES Problem list reviewed and updated with the most current plan of care details and appropriate orders placed. Relevant counseling for the gestational age provided. Continue routine care and follow up unless otherwise noted in visit notes/problem list details OB Flowsheet Initial Weight: Not Recorded Date -?-?-?-?-?-?-?-?-?-?-?-?- EGA Weight BP Urine Prot -?-?-?-?-?-?-?-?-?-?-?-?- Glucose FHR FuHt Pres Dilation -?-?-?-?-?-?-?-?-?-?-?-?- Effaced St Visit Note 01/13/23 -?-?-?-?-?-?-?-?-?-?-?-?- 7w 2d 253 lb 4 oz 123/84 -?-?-?-?-?-?-?-?--?-?-?-?- 160 -?-?-?-?-?-?-?-?-?-?-?-?- SM- CRL 10.5mm o n abdominal US 02/12/23 -?-?-?-?-?-?-?-?-?-?-?-?- 11w 4d 258 lb 2 oz 118/78 Nega tive -?-?-?-?-?-?-?-?-?-?-?-?- Negative 163 -?-?-?-?-?-?-?-?-?-?-?-?- MH-NO VB. Nausea improved. Br US confirm active IUP. PN labs today 03/12/23 -?-?-?-?-?-?-?-?-?-?-?-?- 15w 4d 263 lb 8 oz 127/77 Trac e -?-?-?-?-?-?-?-?-?-?-?-?- Negative 157 -?-?-?-?-?-?-?-?-?-?-?-?- JV- no cramping or complaints. anatomy us with [facility] ordered. declined NIPT. 04/11/23 -?-?-?-?-?-?-?-?-?-?-?-?- 19w 6d 272 lb 120/76 Negative -?-?-?-?-?-?-?-?-?-?-?-?- Negative 143 -?-?-?-?-?-?-?-?-?-?-?-?- KW- no vb/lof/ct x. good fm. Anatomy US yesterday. ITS A GIRL!!!! 05/07/23 -?-?-?-?-?-?-?-?-?-?-?-?- 23w 4d 278 lb 126/77 Negative -?-?-?-?-?-?-?-?-?-?-?-?- Negative 142 -?-?-?-?-?-?-?-?-?-?-?-?- JV- normal anato my. no concerns today. hep b sag send out was neg. getting flu shot through employee health. 06/02/23 -?-?-?-?-?-?-?-?-?-?-?-?- 27w 2d 279 lb 6 oz 110/72 Nega tive -?-?-?-?-?-?-?-?-?-?-?-?- Negative 151 28 -?-?-?-?-?-?-?-?-?-?-?-?- MH-No VB, LOF. G ood FM. Larc. Start FE. 06/17/23 -?-?-?-?-?-?-?-?-?-?-?-?- 29w 3d 282 lb 8 oz 129/77 Nega tive -?-?-?-?-?-?-?-?-?-?-?-?- Negative 145 30 -?-?-?-?-?-?-?-?-?-?-?-?- KW- no vb/lof/ct x. good fm. Tdap today. doing well. started iron. 07/02/23 -?-?-?-?-?-?-?-?-?-?-?-?- 31w 4d 285 lb 6 oz 130/80 Nega tive -?-?-?-?-?-?-?-?-?-?-?-?- Negative 135 32 -?-?-?-?-?-?-?-?-?-?-?-?- LC- no vb/ctx/lo f/ good fm. no concerns today.repeat iron next visit. 07/23/23 -?-?-?-?-?-?-?-?-?-?-?-?- 34w 4d 282 lb 4 oz 132/84 Nega tive -?-?-?-?-?-?-?-?-?-?-?-?- Negative 145 Breech -?-?-?-?-?-?-?-?-?-?-?-?- JV- covid last w [place]. is breech. plan growth scan at 36 weeks. 08/01/23 -?-?-?-?-?-?-?-?-?-?-?-?- 35w 6d 285 lb 131/81 Negative -?-?-?-?-?-?-?-?-?-?-?-?- Negative 140 37 Breech -?-?-?-?-?-?-?-?-?-?-?-?- SM- no vb lof go od fm no regular ctx breech- discussed US next week to confirm and plan ECV if still breech 08/08/23 -?-?-?-?-?-?-?-?-?-?-?-?- 36w 6d 285 lb 6 oz 130/84 Nega tive -?-?-?-?-?-?-?-?-?-?-?-?- Negative 144 Breech 1 -?-?-?-?-?-?-?-?-?-?-?-?- 30 -4 JV- LIBBY 13 , still breech. GBS collected. plan for version on Friday am. 08/15/23 -?-?-?-?-?-?-?-?-?-?-?-?- 37w 6d 285 lb 4 oz 129/82 Nega tive -?-?-?-?-?-?-?-?-?-?-?-?- Negative 140 37 Cephalic -?-?-?-?-?-?-?-?-?-?-?-?- KW- LIBBY 8.5 repe at US next week. no vb/lof/ctx. good fm. 08/22/23 -?-?-?-?-?-?-?-?-?-?-?-?- 38w 6d 284 lb 132/81 -?-?-?-?-?-?-?-?-?-?-?-?- 140 39 Cephalic 1 -?-?-?-?-?-?-?-?-?-?-?-?- 30 -4 SM- no vb lof good fm no regular ctx. discussed IOL between 40-41 weeks 08/29/23 -?-?-?-?-?-?-?-?-?-?-?-?- 39w 6d 285 lb 4 oz 134/83 Nega tive -?-?-?-?-?-?-?-?-?-?-?-?- Negative 145 39 Cephalic 1 .5 -?-?-?-?-?-?-?-?-?-?-?-?- 40 -3 JV-pt worr ied about unstable lie. wondering if IOL can happen 09/02/23. IOL set up for yoandy/dheeraj with Dr. Polanco. NST FHR Rate Baby A Baseline: 130 Variability:: Moderate Accelerations:: 15 x 15 Decelerations:: None NST Reactive:: Yes FHR Category:: Category I Uterine Activity:: irregular ROS Constitutional Constitutional: Reports systems reviewed and no addt'l complaints, except as documented Eyes Eyes: Denies change in vision ENT HEENT: Reports systems reviewed and no addt'l complaints, except as documented; Denies headache(s) Cardiovascular Cardiovascular: Reports systems reviewed and no addt'l complaints, except as documented; Denies chest pain or dyspnea Respiratory/Chest Respiratory/Chest: Reports systems reviewed and no addt'l complaints, except as documented Gastrointestinal Gastrointestinal: Reports systems reviewed and no addt'l complaints, except as d ocumented; Denies abdominal pain Genitourinary Genitourinary: Reports systems reviewed and no addt'l complaints, except as documented, contractions Details: present (irregular) and movement Details: present; Denies dysuria or genital lesions Musculoskeletal Musculoskeletal: Reports systems reviewed and no addt'l complaints, except as documented Neurologic Neurologic: Reports systems reviewed and no addt'l complaints, except as documented Endocrine Endocrinology: Reports systems reviewed and no addt'l complaints, except as documented Vital Signs Vital Signs Vital Signs: 09/02/23 07:52 09/02/23 07:52 09/02/23 08:45 Temperature Temperature Source Temporal Pulse Rate 93 Respiratory Rate Blood Pressure 148/77 H BP Systolic 148 BP Diastolic 77 Pulse Ox 09/02/23 08:45 09/02/23 08:45 09/02/23 08:45 Temperature 97.9 F Temperature Source Pulse Rate Respiratory Rate 17 Blood Pressure BP Systolic BP Diastolic Pulse Ox 96 09/02/23 08:55 09/02/23 08:55 09/02/23 10:37 Temperature Temperature Source Pulse Rate 85 Respiratory Rate Blood Pressure 130/77 H 133/75 H BP Systolic 130 133 BP Diastolic 77 75 Pulse Ox 09/02/23 10:37 09/02/23 10:37 09/02/23 12:28 Temperature Temperature Source Pulse Rate 84 Respiratory Rate 17 Blood Pressure 125/78 H BP Systolic 125 BP Diastolic 78 Pulse Ox 09/02/23 12:28 09/02/23 13:49 09/02/23 13:49 Temperature Temperature Source Pulse Rate 81 80 Respiratory Rate Blood Pressure 149/88 H BP Systolic 149 BP Diastolic 88 Pulse Ox 09/02/23 13:49 09/02/23 14:04 09/02/23 14:04 Temperature Temperature Source Pulse Rate 100 Respiratory Rate 18 Blood Pressure BP Systolic BP Diastolic Pulse Ox 96 09/02/23 14:09 09/02/23 14:09 09/02/23 14:12 Temperature Temperature Source Pulse Rate 98 Respiratory Rate Blood Pressure 163/83 H BP Systolic 163 BP Diastolic 83 Pulse Ox 100 09/02/23 14:12 09/02/23 14:16 09/02/23 14:16 Temperature Temperature Source Pulse Rate 93 93 Respiratory Rate Blood Pressure 150/88 H BP Systolic 150 BP Diastolic 88 Pulse Ox 09/02/23 14:15 09/02/23 14:15 09/02/23 14:16 Temperature Temperature Source Temporal Pulse Rate 98 Respiratory Rate Blood Pressure BP Systolic BP Diastolic Pulse Ox 99 09/02/23 14:16 09/02/23 14:19 09/02/23 14:20 Temperature 97.8 F Temperature Source Pulse Rate 105 H Respiratory Rate Blood Pressure 165/101 H BP Systolic 165 BP Diastolic 101 Pulse Ox 09/02/23 14:20 09/02/23 14:25 09/02/23 14:25 Temperature Temperature Source Pulse Rate 97 Respiratory Rate Blood Pressure 142/82 H BP Systolic 142 BP Diastolic 82 Pulse Ox 99 09/02/23 14:25 09/02/23 14:25 09/02/23 14:30 Temperature Temperature Source Pulse Rate 104 H Respiratory Rate Blood Pressure 147/83 H BP Systolic 147 BP Diastolic 83 Pulse Ox 99 09/02/23 14:30 09/02/23 14:30 09/02/23 14:30 Temperature Temperature Source Pulse Rate 96 104 H Respiratory Rate Blood Pressure BP Systolic BP Diastolic Pulse Ox 97 09/02/23 14:35 09/02/23 14:35 09/02/23 14:39 Temperature Temperature Source Pulse Rate 109 H Respiratory Rate Blood Pressure 151/74 H BP Systolic 151 BP Diastolic 74 Pulse Ox 99 09/02/23 14:39 09/02/23 14:40 09/02/23 14:40 Temperature Temperature Source Pulse Rate 90 87 Respiratory Rate Blood Pressure BP Systolic BP Diastolic Pulse Ox 98 09/02/23 14:45 09/02/23 14:45 09/02/23 14:45 Temperature Temperature Source Pulse Rate 92 Respiratory Rate Blood Pressure 160/88 H BP Systolic 160 BP Diastolic 88 Pulse Ox 98 09/02/23 14:49 09/02/23 14:49 09/02/23 14:50 Temperature Temperature Source Pulse Rate 93 88 Respiratory Rate Blood Pressure 143/80 H BP Systolic 143 BP Diastolic 80 Pulse Ox 09/02/23 14:50 09/02/23 14:53 09/02/23 14:53 Temperature Temperature Source Pulse Rate 92 Respiratory Rate Blood Pressure 148/84 H BP Systolic 148 BP Diastolic 84 Pulse Ox 96 09/02/23 14:05 09/02/23 14:00 09/02/23 14:55 Temperature Temperature Source Pulse Rate 87 Respiratory Rate 17 17 Blood Pressure BP Systolic BP Diastolic Pulse Ox 09/02/23 14:35 09/02/23 14:30 09/02/23 14:25 Temperature Temperature Source Pulse Rate Respiratory Rate 17 17 17 Blood Pressure BP Systolic BP Diastolic Pulse Ox 09/02/23 14:20 09/02/23 14:15 09/02/23 14:10 Temperature Temperature Source Pulse Rate Respiratory Rate 17 17 17 Blood Pressure BP Systolic BP Diastolic Pulse Ox 09/02/23 14:55 09/02/23 14:55 09/02/23 14:50 Temperature Temperature Source Pulse Rate Respiratory Rate 17 17 Blood Pressure BP Systolic BP Diastolic Pulse Ox 98 09/02/23 14:45 09/02/23 14:40 09/02/23 15:00 Temperature Temperature Source Pulse Rate Respiratory Rate 17 18 Blood Pressure 143/80 H BP Systolic 143 BP Diastolic 80 Pulse Ox 09/02/23 15:00 09/02/23 15:00 09/02/23 15:00 Temperature Temperature Source Pulse Rate 94 Respiratory Rate Blood Pressure BP Systolic BP Diastolic Pulse Ox 81 98 09/02/23 15:01 09/02/23 15:01 09/02/23 15:01 Temperature 96.4 F L Temperature Source Temporal Pulse Rate Respiratory Rate 17 Blood Pressure BP Systolic BP Diastolic Pulse Ox 09/02/23 15:11 09/02/23 15:11 09/02/23 15:16 Temperature Temperature Source Pulse Rate 90 80 Respiratory Rate Blood Pressure BP Systolic BP Diastolic Pulse Ox 98 09/02/23 15:16 09/02/23 15:21 09/02/23 15:21 Temperature Temperature Source Pulse Rate 83 Respiratory Rate Blood Pressure BP Systolic BP Diastolic Pulse Ox 98 98 09/02/23 15:26 09/02/23 15:26 09/02/23 15:31 Temperature Temperature Source Pulse Rate 85 96 Respiratory Rate Blood Pressure BP Systolic BP Diastolic Pulse Ox 99 09/02/23 15:31 09/02/23 15:36 09/02/23 15:36 Temperature Temperature Source Pulse Rate 98 Respiratory Rate Blood Pressure BP Systolic BP Diastolic Pulse Ox 98 98 09/02/23 15:41 09/02/23 15:41 09/02/23 15:44 Temperature Temperature Source Pulse Rate 98 Respiratory Rate Blood Pressure 147/80 H BP Systolic 147 BP Diastolic 80 Pulse Ox 98 09/02/23 15:44 09/02/23 15:44 09/02/23 15:44 Temperature Temperature Source Temporal Pulse Rate 96 Respiratory Rate 17 Blood Pressure BP Systolic BP Diastolic Pulse Ox 09/02/23 15:44 09/02/23 16:26 09/02/23 16:26 Temperature 97.0 F L Temperature Source Temporal Pulse Rate Respiratory Rate Blood Pressure 117/57 L BP Systolic 117 BP Diastolic 57 Pulse Ox 09/02/23 16:26 09/02/23 16:26 09/02/23 16:26 Temperature 96.9 F L Temperature Source Pulse Rate 83 Respiratory Rate 17 Blood Pressure BP Systolic BP Diastolic Pulse Ox Weight Weight: 286 lb 9.615 oz Body Mass Index (BMI) 43.5 Physical Exam Const alert, oriented x3, no apparent distress and healthy appearing HEENT normocephalic and moist oral mucous membranes Head and Scalp: atraumatic Neck full ROM, no lymphadenopathy, supple and thyroid normal General: trachea midline Lymph Lymphatic: no lymphadenopathy noted Chest inspection of chest normal Resp normal respiratory effort Cardio regular rate GI normal to inspection, nondistended, normoactive bowel sounds, soft to palpation and non-tender Inspection: gravid external exam normal Manual OB Exam: estimated gestational size appropriate, presentation cephalic, dilated, effaced and station Extremity normal to inspection General Extremity: Negative for edema Skin no rashes or lesions noted Neuro no focal motor deficits and deep tendon reflexes 2+ bilaterally Motor Exam: strength 5/5 throughout and clonus absent Psych mental status grossly normal Labs Labs Labs: Blood Type A POSITIVE Antibody Screen NEGATIVE Hct 33.0 % (37-47) L Hgb 11.4 g/dL (12.0-15.0) L Obstetrics Ultrasound Syphilis Total Ab Non-reactive Rubella IgG Antibody Reactive (Nonreactive) Hep Bs Antigen Preliminary Reactive (Nonre active) H Hepatitis C Antibody Non-Reactive (Nonreactive) Chlamydia DNA (RONEL) Negative (Negative) N.gonorrhoeae DNA (RONEL) Negative (Negative) HIV 1&2 Antibody Non-Reactive (Nonreactive) Glucose 1 Hr 50 gm 132 mg/dL (70-140) Group B Strep DNA Negative (Negative) Rhogam given: No Miscellaneous Test Assessment & Plan (1) Anemia in preg-unspec: QUALIFIERS: Trimester: second trimester Qualified Code(s): O99.012 - Anemia complicating , second trimester COMMENT: add fe. rpt 4 wk: improved (2) Hepatitis B surface antigen positive: COMMENT: false pos- send out was negative. (3) Unsure of LMP (last menstrual period) as reason for ultrasound scan: COMMENT: has long cycles, measuring 7q1d today but unclear measurement, formal scan ordered, US shows 7q3d (4) Obesity affecting : QUALIFIERS: Trimester: first trimester Obesity type affecting : unspecified obesity Qualified Code(s): O99.211 - Obesity complicating , first trimester COMMENT: encouraged healthy weight gain 1 TM GCT (5) Supervision of high-risk : QUALIFIERS: Trimester: first trimester Qualified Code(s): O09.91 - Supervision of high risk , unspecified, first trimester COMMENT: SAULO PC Ky Carrillo Fercho (6) : QUALIFIERS: Weeks of gestation: 39 weeks Qualified Code(s): Z3A.39 - 39 weeks gestation of COMMENT: GBS neg, nipt, carrier, and ntd screening declined. Nl anatomy (7) Family history of spina bifida: COMMENT: 4 MG FOLIC ACID DIALY PLAN: Plan Patient presents IOL, plan management for with fb pitocin/AROM. Pain management: plans epidural. GBS negative. Management of any complications: none I have [facility] the [facility] and made any clinically relevant updates.
--- NOTE | 2023-09-02 19:22 | EX.PCM.OBRPT ---
Assessment & Plan (1) COVID-19 affecting in third trimester: COMMENT: started baby asa (2) Anemia in preg-unspec: QUALIFIERS: Trimester: second trimester Qualified Code(s): O99.012 - Anemia complicating , second trimester COMMENT: add fe. rpt 4 wk: improved (3) Hepatitis B surface antigen positive: COMMENT: false pos- send out was negative. (4) Unsure of LMP (last menstrual period) as reason for ultrasound scan: COMMENT: has long cycles, measuring 7q1d today but unclear measurement, formal scan ordered, US shows 7q3d (5) Obesity affecting : QUALIFIERS: Trimester: first trimester Obesity type affecting : unspecified obesity Qualified Code(s): O99.211 - Obesity complicating , first trimester COMMENT: encouraged healthy weight gain 1 TM GCT (6) Supervision of high-risk : QUALIFIERS: Trimester: first trimester Qualified Code(s): O09.91 - Supervision of high risk , unspecified, first trimester COMMENT: SAULO Ky Felipe Fercho (7) : QUALIFIERS: Weeks of gestation: 39 weeks Qualified Code(s): Z3A.39 - 39 weeks gestation of COMMENT: GBS neg, nipt, carrier, and ntd screening declined. Nl anatomy (8) Family history of spina bifida: COMMENT: 4 MG FOLIC ACID DIALY (9) Vaginal delivery: COMMENT: SM IOL girl Juan Maternal Data Information SAULO Calculator Estimated Delivery Date Method Current WG Current Estimate 08/30/23 Ultrasound #1 40w 3d Other Estimates 08/21/23 LMP (Certain) 41w 5d Vaginal Delivery Operative Information Date of Procedure: 09/02/23 Pre-Operative Diagnosis: see a/p diagnoses Post-Operative Diagnosis: same Surgery / Procedure Performed: Spontaneous Vaginal Delivery Type of Anesthesia: Epidural Special Medications: none Estimated Blood Loss: 400 Fluids Replaced: crystalloid Findings Description of Procedure: Patient began pushing and delivered the head in the KAI presentation. The head was delivered atraumatically and a loose nuchal cord ?1 was identified and the delivered through without complication. The anterior and posterior shoulders delivered without complication followed by the rest of the and the infant was placed on the maternal abdomen. Delayed cord clamping was employed for approximately 60 seconds. Cord was clamped and cut and gentle traction was applied to the cord and the placenta delivered spontaneously immediately following it was noted to be intact with three-vessel cord. The perineum and vagina were inspected and noted to have a first degree perineal laceration which was repaired in the usual fashion with 3-0 vicryl rapide. . EBL was 400. Patient and infant tolerated delivery well. Amniotic Fluid Description: Clear Placental Delivery Description: Spontaneous Placenta Disposition: [facility] Cord Vessel Description: 3 Vessels Cord Entanglement: None Delayed Cord Clamping: Yes Post Vaginal Delivery Medications Given After Delivery: IV Pitocin Episiotomy Description: None Complication Complications: None Procedures Urinary/Genital [id number]: [id number] Vaginal Delivery [facility]
--- NOTE | 2023-09-02 19:23 | DCINST_ITS ---
Discharge Instructions Diet Discharge Diet: No restrictions Activity Discharge Activity: Return to Normal Activity, May Not Drive (while taking narcotic pain medications.) and May Shower May resume sexual activity in: 4-6 weeks Dressing / Incision Call your doctor if your incision/area has: Continuous Slow Oozing, Sudden Increased Bleeding, Increased Pain/ Swelling, Increased Redness and Foul Smelling Discharge Follow Up Care Please Follow Up With: Ana Rosa Polanco MD When: Call [phone] to make an appointment with your doctor in 6 weeks. If you had elevated blood pressure or 4th degree laceration, you will need to be seen in 2 weeks. Test Results: Test results from this visit will be discussed in further detail at your follow- up appointment, if applicable. Discharge Plan Admission Admit Date/Time: 09/02/23 07:10 Attending Provider: Ana Rosa Polanco Primary Care Provider: Alejandro Whitmore Discharge Orders/Prescriptions Prescriptions: No Action DHA 200 mg capsule 1 mg PO DAILY cholecalciferol (vitamin D3) 50 mcg (2,000 unit) capsule 50 mcg PO DAILY magnesium citrate 100 mg tablet 100 mg PO DAILY ferrous sulfate [iron] 325 mg (65 mg iron) tablet 325 mg PO DAILY Referrals / Follow Up: Alejandro Whitmore MD [Primary Care Provider] - Disposition Disposition (needs filled in before D/C Order can be placed): Home, Self Care
[2023-09-02] MEDS: Oxytocin 15 Units/NS 250ml 15 UNITS/250 ML IV.SOLN 83 UNITS IV (19:25)
[2023-09-02] MEDS: Lidocaine 1% (20 ml mdv) 20 ML Vial INFILT (19:28)
[2023-09-02] MEDS: Naproxen 500 MG Tablet PO (20:47)
[2023-09-03] VITALS (9 sets, daily range): BP systolic 123–141; BP diastolic 71–90; PULSE 73–87; RESP 16–17; TEMP 36.4–36.7; O2SAT 97
[2023-09-03] MEDS: Naproxen 500 MG Tablet PO ×2 (04:06→13:26)
--- NOTE | 2023-09-03 07:58 | PCM.PN.OB ---
Subjective Subjective Patient doing well without complaints. Tolerating PO. Ambulating and voiding without difficulty. Feeding well. Denies chest pain, shortness of breath, calf pain/swelling, fevers, chills, lightheadedness. Denies headache. Note minimally elevated blood pressure. Objective Data Objective Data Vital Signs: Vital Signs Temp Pulse Resp BP Pulse Ox O2 Del Method 98 F 87 17 141/82 H 97 Room Air 09/03/23 04:10 09/03/23 04:10 09/03/23 04:10 09/03/23 04:10 09/03/23 04:10 09/03/23 04:10 Oxygen Delivery Method Room Air Weight: 286 lb 9.615 oz Body Mass Index (BMI) 43.5 Intake & Output: Intake and Output for Last 24 Hours 09/01/23 09/02/23 09/03/23 23:59 23:59 23:59 Intake Total 2000.00 / 2000.00 Output Total 950 / 950 500 / 500 Balance 1050.00 / 1050.00 -500 / -500 Lab / Micro Data 09/02/23 07:50 Labs: Laboratory Results - last 24 hr 09/02/23 07:50: WBC 7.6, RBC 3.59 L, Hgb 11.4 L, Hct 33.0 L, MCV 91.9, MCH 31.8, MCHC 34.5, RDW Std Deviation 41.5, RDW Coeff of Tim 12.4, Plt Count 213, MPV 9.8, Immature Gran % (Auto) 0.500, Neut % (Auto) 67.1, Lymph % (Auto) 26.4, Teller % (Auto) 4.5, Eos % (Auto) 1.2, Baso % (Auto) 0.3, Absolute Neuts (auto) 5.1, Absolute Lymphs (auto) 2.00, Nucleated RBC % 0, Syphilis Total Ab Non-reactive, Blood Type A POSITIVE, Antibody Screen NEGATIVE Physical Exam Const alert and oriented x3 HEENT normocephalic Eyes PERRL Neck full ROM Resp normal respiratory effort GI soft to palpation GI Narrative: FF below U Assessment & Plan (1) Vaginal delivery: COMMENT: SM IOL girl [place] (2) Elevated blood pressure reading: PLAN: Plan s/p PPD # 1. routine post delivery care 2. breast feeding- support given 3. rh positive 4. rubella immune 5. will monitor BP for today. If stable plans home today
--- NOTE | 2023-09-08 09:14 | NURSING ---
Follow up phone call performed: pt. doing well. Denies issues with vaginal bleeding, no headache, no blurred vision. Feeling well overall. Some nipple pain with nursing, saw yesterday. Encouragement and support given. Pt. informed to call back into if nipple pain does not resolve over the next couple days.
== END 2023-09-03 19:25 | disposition home or self-care (01) | DRG 807 ==
PROVIDERS: Admitting Provider Obstetrics & Gynecology; PCP Internal Medicine; Visit Provider Obstetrics & Gynecology
DX: O99.214 Obesity complicating childbirth (principal); Z37.0 Single live birth; R03.0 Elevated blood-pressure reading, without diagnosis of hypertension; D64.9 Anemia, unspecified; O99.02 Anemia complicating childbirth; O99.893 Other specified diseases and conditions complicating puerperium; O69.81X0 Labor and delivery complicated by cord around neck, without compression, not applicable or unspecified; O70.0 First degree perineal laceration during delivery; Z79.899 Other long term (current) drug therapy; Z3A.39 39 weeks gestation of pregnancy
CPT/HCPCS: 59025; 59050; 76815; 85025; 86780; 86850; 86900; 86901; 99221; J7120; A4216; G0378; J2405

== ENCOUNTER → 2025-02-17 | Outpatient (CLI) | payer OTHER, SELFPAY | END | disposition home or self-care (01) | LOC: LABSPEC 14:32 | PROVIDERS: PCP Internal Medicine; Referring Provider Obstetrics & Gynecology; Visit Provider Obstetrics & Gynecology | DX: N89.8 Other specified noninflammatory disorders of vagina (principal) | CPT/HCPCS: 87070; 87077; 87186; 87205 ==